=== PATIENT | male | born 1970 | race Caucasian/White ===

== ENCOUNTER 2023-07-14 15:41 | Outpatient (AMB) | payer OTHER, SELFPAY ==
--- NOTE | 2023-07-14 15:48 | A.OFFPC_ITS ---
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 Intake Note: pt is here for est care, has concerns of tinnitus, left thumb sore and cramps up and left arm goes numb ongoing, and left knees achy,pt states on on giong 1 yr Conflict Resolution Professional Required: No Accompanied by: Self / Same As Patient Allergies No Known Allergies Allergy (Verified 07/14/23 16:25) Medication List - Last Reconciled 07/14/23 by KEREN Givens No Known Home Meds Tobacco use date assessed: 07/14/23 Dental Screening Dental Screen Date: 07/14/23 Did you have a dental visit in the last 12 months?: Yes Did you have a dental problem in the last 6 months where you did not have access to dental care?: No Was dental information given to patient?: Patient has dentist 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 Will have pt monitor his blood pressure at home and drop off readings. Denies chest pain, shortness of breath, headache, dizziness, and blurred vision. Pt reports numbness of his LUE. He reports that the numbness starts in his forearm and hand and moves to his bicep and tricep. He does report some cervical neck pain. Pt reports that with certain motions he has radicular symptoms to his LUE. Recommended wrist brace at night and wrapping a towel around his elbow to keep arm straight. Will order XR of cervical spine and EMG testing. Pt has been a PPD smoker since age 20. Will refer for low-dose CT. [facility] Surgical History Hx of tonsillectomy Family History Mother No problems noted. Father Pancreatic cancer Social History Housing: House Alcohol intake: current Alcohol intake frequency: a few times a month Alcohol type: beer Patient Tobacco Use Status: Current everyday Tobacco user Cigarettes Per Day: 20 e-Cigarette/Vaping Use: Never Used service: Yes Current occupational status: employed and retired ([employer] ) Current occupation: [employer] Current occupational exposures/hazards: No Cognitive needs: No Hearing needs: No Vision needs: Yes Questionnaire PHQ-9 Over the last 2 weeks, how often have you been bothered by any of the following problems? 1. Little interest or pleasure in doing things: not at all 2. Feeling down, depressed, or hopeless: not at all 3. Trouble falling or staying asleep, or sleeping too much: not at all 4. Feeling tired or having little energy: not at all 5. Poor appetite or overeating: not at all 6. Feeling bad about yourself - or that you are a failure or have let yourself or your family down: not at all 7. Trouble concentrating on things, such as reading the newspaper or watching television: not at all 8. Moving or speaking so slowly that other people could have noticed. Or the opposite - being so fidgety or restless that you have been moving around a lot more than usual: not at all 9. Thoughts that you would be better off or of hurting yourself in some way: not at all Total score: 0 Depression Screening Interpretation: Negative Depression Screening Done: Yes 10468 - PHQ-9 Billing: Yes Source: Developed by Drs. Patrice Baires, Suzy Calderón, Elio Garcia and colleagues, with an educational lit from [employer]. Thrive Questionnaire Date Thrive assessed: 07/14/23 I am a: Patient What is your living situation today?: I have a steady place to live Within the past 12 months, did the food you bought not last and you didn't have the money to get more?: Never true Within the past 12 months, did you worry whether your food would run out before you got money to buy more?: Never true Do you have trouble paying for medicines?: No Do you have trouble getting transportation to medical appointments?: No Do you have trouble paying your heating and electricity bill?: No Do you have trouble taking care of your child, family member or friend?: No Do you have trouble with day-to-day activities such as bathing, preparing meals, shopping, managing finances, etc.?: No Are you currently unemployed and looking for a job?: No Are you interested in more education?: No Please select the resources that you would like help with: None Currently or been in a relationship where the following occur: no concerns reported THRIVE Score: 0 AUDIT C Alcohol Use Questionnaire (AUDIT-C) 1. How often do you have a drink containing alcohol?: 2-4 times a month 2. How many drinks containing alcohol do you have on a typical day when you are drinking?: 1 or 2 3. How often do you have six or more drinks on one occasion?: Never Total Score: 2 Score Reviewed/Action Taken: Yes SUMAYA-7 AMB Questionnaire SUMAYA-7 Date SUMAYA - 7 assessed: 07/14/23 Feeling nervous, anxious, or on edge: 0 = Not at all Not being able to stop or control worryin = Not at all Worrying too much about different things: 0 = Not at all Trouble relaxin = Not at all Being so restless that it is hard to sit still: 0 = Not at all Becoming easily annoyed or irritable: 0 = Not at all Feeling afraid as if something awful might happen: 0 = Not at all Total SUMAYA-7 score (0-4 normal; 5-9 mild; 10-14 moderate; 15-21 severe): 0 Source: Developed by Drs. Patrice Baires, Suzy Calderón, Elio Garcia and colleagues, with an educational lit from [employer]. SUMAYA-7 Assessment Billing SUMAYA-7 Assessment Tool: SUMAYA-7 Assessment 08813 Review of Systems Const Denies chills and Denies fever(s) Eyes Denies blurry vision ENT Denies vertigo, Denies dizziness and Denies sore throat Card Denies chest pain at rest, Denies chest pain with activity, Denies diaphoresis, Denies dyspnea and Denies dyspnea on exertion Resp Denies cough, Denies dyspnea, Denies dyspnea on exertion and Denies wheezing GI Denies abdominal pain, Denies melena, Denies hematochezia, Denies constipation, Denies diarrhea and Denies loose stools Denies hematuria Musc Denies numbness and Denies tingling Skin/Breast Denies lesions Neuro Denies vertigo, Denies dizziness, Denies numbness and Denies tingling Psych Denies anxiety, Denies depression, Denies homicidal ideation, Denies suicidal ideation and Denies other (substance abuse) Aller/Immun Denies wheezing Physical exam (Primary Care) Vital Signs: Last Vital Signs Pulse 74 07/14/23 15:50 BP 132/80 07/14/23 15:50 Pulse Ox 98 07/14/23 15:50 Oxygen Delivery Method Room Air 07/14/23 15:50 BMI result Body Mass Index 22.2 Tobacco/Smoking Status: Tobacco use Status Tobacco use date assessed 07/14/23 07/14/23 15:58 Patient Tobacco Use Status Current everyday Tobacco 07/14/23 15:58 e-Cigarette/Vaping Use Never Used 07/14/23 15:58 PHQ-9: PHQ-9 Score PHQ-9: Total score 0 07/14/23 16:12 Depression Screening Interpretation: Negative Thrive Assessment: Date of Thrive Assessment Date Thrive assessed 07/14/23 07/14/23 15:58 Currently or been in a relationship where the following occur: no concerns reported Const General: cooperative Nutritional Appearance: well nourished Orientation/consciousness: patient oriented x3 Resp Effort & Inspection: normal respiratory effort Auscultation: clear to auscultation bilaterally Cardio Rate: regular rate Rhythm: regular rhythm Heart sounds: S1 normal heart sound present, S2 normal heart sound present and no murmurs Back/Spine/Pelvis Other: - spurlings, no pain with turning head side to side, neck flexion, and extension Neuro General: patient oriented x3 Extrem Other: - tinels, + phalens Psych Appearance: grossly normal Mental Status: mental status grossly normal Speech and movement: Normal speech and movement present Affect: normal affect Attitude: cooperative Thought process: Normal thought process present Thought content: Normal thought content present Insight: Good insight present (Psych) Judgement: Good judgement present (Psych) Assessment and Plan Assessment & Plan (1) Smoker: Code(s): F17.200 - Nicotine dependence, unspecified, uncomplicated Plan: referring to thoracics for LDCT (2) HTN (hypertension): Code(s): I10 - Essential (primary) hypertension Plan: Pt will monitor BP at home and drop off readings, labs ordered (3) Cervical neck pain with evidence of disc disease: Code(s): M50.90 - Cervical disc disorder, unspecified, unspecified cervical region Plan: XR ordered (4) Left arm numbness: Code(s): R20.0 - Anesthesia of skin Plan: mostly forearm/hand numbness. EMG ordered, instructed to use a wrist splint at night and wrap a towel around his elbow to keep his arm straight at night Plan The patient agreed to the use of a medical records supervisor for this encounter. Scribed for MIGEL Rueda-BC by Kayleigh Naylor medical records supervisor, on 07/14/2023 at 16:15 EST. Orders: Orders Lipid Panel Today I10 - Essential (primary) hypertension NE electromyogram (EMG) Today R20.0 - Anesthesia of skin Complete Blood Count Auto Diff Today I10 - Essential (primary) hypertension Comprehensive Proctor. Panel Fast Today I10 - Essential (primary) hypertension TSH reflex Free T4 Today I10 - Essential (primary) hypertension UA CC w/rflx Micro + Cult Today I10 - Essential (primary) hypertension XR cervical spine 2V Today M50.90 - Cervical disc disorder, unspecified, unspecified cervical region NE nerve conduction velocity Today R20.0 - Anesthesia of skin Referrals Thoracic Surgery Referral F17.200 - Nicotine dependence, unspecified, uncomplicated Coding Level of Care Code New Pt Level 3 (73878) Diagnoses Smoker F17.200 HTN (hypertension) I10 Cervical neck pain with evidence of disc disease M50.90 Left arm numbness R20.0 Additional Codes SUMAYA-7 Assessment Billing - SUMAYA-7 Assessment Tool: SUMAYA-7 Assessment 82580 ([id number])
[2023-07-14 15:50] VITALS: BP 132/80; PULSE 74; O2SAT 98; BMI 22.2
== END 2023-07-14 16:39 | disposition home or self-care (01) ==
PROVIDERS: PCP Nurse Practitioner Family; Visit Provider Nurse Practitioner Family
DX: I10 Essential (primary) hypertension (principal); F17.210 Nicotine dependence, cigarettes, uncomplicated; M50.90 Cervical disc disorder, unspecified, unspecified cervical region; R20.0 Anesthesia of skin
CPT/HCPCS: 99203

== ENCOUNTER 2023-07-23 07:47 | Outpatient (REF) | payer OTHER, SELFPAY ==
--- NOTE | 2023-07-23 08:08 | EMG_ITS ---
Left median and ulnar motor and sensory studies were performed. Left antecubital brachial, median, and lateral radial sensory studies were performed. Needle examination was performed. IMPRESSION: Mild to moderate left ulnar neuropathy across cubital tunnel. MD TEJINDER Garcia/DA / [id number]
== END 2023-07-23 07:48 | disposition home or self-care (01) ==
LOC: HO.NEURO 07:47
PROVIDERS: PCP Nurse Practitioner Family; Visit Provider Nurse Practitioner Family
DX: R20.0 Anesthesia of skin (principal)
CPT/HCPCS: 95886; 95910

== ENCOUNTER 2023-07-23 09:11 | Outpatient (REF) | payer OTHER, SELFPAY ==
--- NOTE | ~2023-07-23 | XR_ITS ---
EXAMINATION: XR CERVICAL SPINE CLINICAL INFORMATION: Cervical disc disorder, unspecified, unspecified cervical region COMPARISON: None available. TECHNIQUE: AP and lateral views of the cervical spine were obtained. FINDINGS: The bones are diffusely osteopenic. There is no fracture. Prevertebral soft tissues are within normal limits. There is moderate to marked disc space narrowing at C5-C6 and C6-C7 with marginal osteophyte formation. There is no subluxation. There is preservation of the normal cervical lordosis. XR/XR cervical spine 2V IMPRESSION: Moderate to marked degenerative disc disease at C5-C6 and C6-C7.
[2023-07-23 10:12] LABS: MANUAL DIFF FLAG NO
[2023-07-23 10:30] LABS: Basophils Absolute Auto 0.1 X10*3/uL (0.0-0.2); Basophils Percent Auto 0.7 % (0-2); Eosinophils Absolute Auto 0.1 X10*3/uL (0.0-0.4); Hematocrit 45.4 % (42.0-52.0); Hemoglobin 15.5 g/dl (14.0-18.0); Imm Gran Abs Auto 0.03 X10*3/uL (0.00-0.03); Imm Gran Pct Auto 0.4 % (0.0-0.4); Lymphocytes Absolute Auto 1.8 X10*3/uL (1.2-4.9); Lymphocytes Percent Auto 25.7 % (20-40); Mean Corpuscular HGB Conc 34.1 g/dl (31.0-36.0); Mean Corpuscular Hemoglobin 32.6 pg (27.0-33.0); Mean Corpuscular Volume 95.4 fL (80.0-98.0); Mean Platelet Volume 9.6 fL (9.4-12.4); Monocytes Absolute Auto 0.5 X10*3/uL (0.1-1.2); Monocytes Percent Auto 7.1 % (2-11); Neutrophils Absolute Auto 4.6 x10*3/uL (2.0-8.3); Neutrophils Percent Auto 65.1 % (45-73); Platelet Count 345 X10*3/uL (160-400); Red Blood Count 4.76 X10*6/uL (4.60-5.80); Red Cell Distribution Width 13.1 % (11.0-16.0); White Blood Count 7.1 X10*3/uL (4.8-10.8)
[2023-07-23 11:43] LABS: Alanine Aminotransferase 18 U/L (0-40); Albumin Level 4.3 g/dL (3.5-5.0); Alkaline Phosphatase 65 U/L (39-117); Anion Gap 11 (12-20); Aspartate Amino Transferase 17 U/L (5-37); Bilirubin Total 0.7 mg/dL (0.0-1.0); Blood Urea Nitrogen 12 mg/dL (9-16); Calcium 9.4 mg/dL (8.4-10.2); Carbon Dioxide 28 mmol/L (22-29); Chloride 106 mmol/L (96-108); Cholesterol 163 mg/dL (<200); Estimated Glomerular Filt Rate > 60; Glucose Fasting 81 mg/dL (60-99); HDL Cholesterol 58 mg/dL (>40); LDL Cholesterol Calculated 96 mg/dL (<100); Potassium 4.3 mmol/L (3.3-5.1); Sodium 141 mmol/L (135-145); Triglycerides 47 mg/dL (<150)
== END 2023-07-23 09:12 | disposition home or self-care (01) ==
LOC: HO.HMGCX 09:11
PROVIDERS: PCP Nurse Practitioner Family; Visit Provider Nurse Practitioner Family
DX: M50.90 Cervical disc disorder, unspecified, unspecified cervical region (principal); I10 Essential (primary) hypertension; R20.0 Anesthesia of skin
CPT/HCPCS: 36415; 72040; 80053; 80061; 84443; 85025

== ENCOUNTER 2023-07-24 05:51 | Outpatient (REF) | payer OTHER, SELFPAY ==
[2023-07-24 11:08] LABS: Appearance Urine Clear; Color Urine Yellow; Glucose Urine UA Negative (Negative); Leukocyte Esterase Urine Negative (Negative); Nitrite Urine Negative (Negative); PH 5.5 (5.0-9.0); Specific Gravity - Urine 1.025 (1.005-1.025); UMIC TRIGGER UACC YES; Urine Blood Trace (Negative); Urine Ketones Negative (Negative); Urine Protein Negative (Neg-Trace)
[2023-07-24 11:16] LABS: Bacteria Urine None Seen (None Seen); Hyaline Casts Urine 0-2 /LPF (0-2); RBC Urine 0-2 /HPF (0-2); Squamous Epithelial Cell Urine 0-2 /HPF (0-2); WBC Urine 0-5 /HPF (0-5)
== END 2023-07-24 05:52 | disposition home or self-care (01) ==
LOC: HO.HMGCLNP 05:51
PROVIDERS: PCP Nurse Practitioner Family; Visit Provider Nurse Practitioner Family
DX: I10 Essential (primary) hypertension (principal)
CPT/HCPCS: 81001; 81003

== ENCOUNTER 2023-08-04 06:19 | Outpatient (REF) | payer OTHER, SELFPAY ==
[2023-08-04 11:29] LABS: Prostate Specific Antigen Scr 0.24 ng/mL (<0.05-4.0)
== END 2023-08-04 06:20 | disposition home or self-care (01) ==
LOC: HO.HMGCLDS 06:19
PROVIDERS: PCP Nurse Practitioner Family; Visit Provider Nurse Practitioner Family
DX: Z12.5 Encounter for screening for malignant neoplasm of prostate (principal)
CPT/HCPCS: 36415; 84153

== ENCOUNTER 2023-09-10 06:49 | Outpatient (REF) | payer OTHER, SELFPAY ==
[2023-09-10 10:15] LABS: Urine Cytology See Pathology rpt
[2023-09-10 10:21] LABS: Appearance Urine Clear; Color Urine Yellow; Glucose Urine UA Negative (Negative); Leukocyte Esterase Urine Negative (Negative); Nitrite Urine Negative (Negative); Urine Blood Negative (Negative); Urine Ketones Negative (Negative); Urine Protein Negative (Neg-Trace)
== END 2023-09-10 06:50 | disposition home or self-care (01) ==
LOC: HO.HMGCLDS 06:49
PROVIDERS: PCP Nurse Practitioner Family; Visit Provider Nurse Practitioner Family
DX: I10 Essential (primary) hypertension (principal); R31.29 Other microscopic hematuria
CPT/HCPCS: 81003; 87086; 88112

== ENCOUNTER 2023-09-17 07:33 | Outpatient (REF) | payer OTHER, SELFPAY ==
--- NOTE | ~2023-09-17 | CT_ITS ---
EXAMINATION: CT ABDOMEN AND PELVIS WITHOUT AND WITH CONTRAST CLINICAL INFORMATION: Other microscopic hematuria. COMPARISON: None available. TECHNIQUE: Noncontrast CT of the abdomen and pelvis is performed followed by split bolus contrast-enhanced images using 85 mL Omnipaque 350 contrast.? Postcontrast imaging is performed during the combined nephrogram and excretion phase. Sagittal and coronal reformatted images were obtained on the technologist's workstation for both the precontrast and postcontrast phases. This CT examination was performed using dose optimization techniques as appropriate, variously including the following: *Automated exposure control *Adjustment of mA and/or kV according to patient size (this includes techniques or standardized protocols for targeted exams where dose is matched to indication/reason for exam; i.e. extremities or head) *Use of iterative reconstruction technique DLP: 585.0 mGy-cm FINDINGS: LUNG BASES: The visualized lung bases are unremarkable. LIVER, GALLBLADDER, AND BILIARY TREE: The liver is enlarged at 17.9 cm in cephalocaudad dimension but demonstrates normal attenuation and shape. No focal hepatic lesion or biliary ductal dilatation is present. The gallbladder is contracted and small but otherwise unremarkable with no evidence of radiopaque gallstones, gallbladder wall thickening, or obvious pericholecystic inflammatory changes. PANCREAS: Unremarkable. SPLEEN: Unremarkable. ADRENAL GLANDS: Unremarkable. KIDNEYS AND URETERS: The kidneys are normal in size, shape, and attenuation. Multiple left-sided benign parapelvic and cortical Bosniak class I renal cysts are noted, which require no additional imaging or followup. No solid renal masses are seen. No hydronephrosis, hydroureter, or calculi seen. No perinephric stranding. No filling defects or masses are seen within the urinary collecting system. BLADDER: The anterior lateral portions of the bladder extend mildly into small direct inguinal hernias bilaterally, right greater than left. GASTROINTESTINAL TRACT: The small and large bowel are unremarkable. The appendix is unremarkable. ABDOMINAL WALL: No significant hernia is appreciated. LYMPH NODES: Normal. VASCULAR: Unremarkable. PELVIC VISCERA: There is mild prostatic enlargement. Seminal vesicles appear symmetrically slightly enlarged. OSSEUS STRUCTURES: Mild scoliosis convex to the left. Mild degenerative changes are present throughout the spine. There is marked grade 1 anterolisthesis of L5 upon S1. CT/CT urogram IMPRESSION: 1. A cause for the patient's hematuria has not been found. 2. Incidental note made of mild hepatomegaly, benign Bosniak class I left renal cysts which need no additional imaging or followup, small bilateral direct inguinal hernias containing a small amount of the bladder, mild BPH and degenerative changes in the spine with grade 1 anterolisthesis of L5 upon S1.
[2023-09-17] MEDS: iohexoL 350 MG/ML 100 ML INFUS..BTL IV (08:33)
[2023-09-18 14:24] LABS: GFR POC > 60
== END 2023-09-17 07:34 | disposition home or self-care (01) ==
LOC: HO.CT 07:33
PROVIDERS: PCP Nurse Practitioner Family; Visit Provider Nurse Practitioner Family
DX: R31.29 Other microscopic hematuria (principal)
CPT/HCPCS: 74178; 82565; Q9967

== ENCOUNTER 2023-10-13 08:38 | Outpatient (REF) | payer OTHER, SELFPAY ==
[2023-10-14 07:59] LABS: Urine Cytology See Pathology rpt
== END 2023-10-13 08:39 | disposition home or self-care (01) ==
LOC: HO.LNP 08:38
PROVIDERS: PCP Nurse Practitioner Family; Visit Provider Nurse Practitioner Family
DX: R31.29 Other microscopic hematuria (principal); F17.210 Nicotine dependence, cigarettes, uncomplicated
CPT/HCPCS: 81003; 88112; 99202

== ENCOUNTER 2023-10-13 08:38 | Outpatient (AMB) | payer OTHER, SELFPAY ==
--- NOTE | 2023-10-13 08:50 | A.OFFVIS_ITS ---
Intake Visit Reasons: microscopic hematuria Intake Note: New Patient presents today for initial visit to establish treatment for : Microscopic Hematuria Urology Medications: none Allergies to Antibiotic: none Blood Thinner: none Smoker: yes, 20-30yrs Yarn Dyer Required: No Accompanied by: Self / Same As Patient Allergies No Known Allergies Allergy (Verified 10/13/23 09:20) Medication List - Last Reconciled 10/13/23 by KEREN Faith No Known Home Meds HPI Comments Details: Miko Weeks is a very pleasant 52-year-old male patient of Dr. Meraz. Presents to the office today as a new patient for microscopic hematuria in the setting of nicotine dependence. In discussion with the patient today he reports having followed up with his PCP for back pain and arm pain he has been experiencing at which time a urine was obtained and the patient was noted to have microscopic hematuria and recommendations were made for urology referral for further assessment evaluation. Patient reports over 20 year history of nicotine dependence. He reports smoking approximately 1 pack of cigarettes per day. In review of patient's chart it appears a CT urogram was ordered and performed however reading remains unread. Images reviewed with Dr. Pinto no abnormalities noted within the kidneys, ureters, and or bladder. The prostate does appear enlarged. When asked he otherwise denies any bothersome urinary issues. He denies urinary urgency, urinary frequency, incontinence, noc turia, hematuria, dysuria, foul smelling urine, changes to urinary stream, flank pain, fever, and or chills. He is happy with his current voiding parameters. Discussed at length potential causes for microscopic hematuria may include but are not limited to kidney stones, cancer in the urinary tract, BPH, kidney stone disease or inflammatory conditions of the urinary tract. I have discussed workup to include cystoscopy evaluation. In review of patient's chart it appears urine cytology 09/17 Negative for high-grade urothelial carcinoma. He otherwise offers no other issues or concerns at this time. [facility] Surgical History Hx of tonsillectomy Family History Mother No problems noted. Father Pancreatic cancer Social History Housing: House Alcohol intake: current Alcohol intake frequency: a few times a month Alcohol type: beer Patient Tobacco Use Status: Current everyday Tobacco user Cigarettes Per Day: 20 e-Cigarette/Vaping Use: Never Used service: Yes Current occupational status: employed and retired ([employer] ) Current occupation: [employer] Current occupational exposures/hazards: No Cognitive needs: No Hearing needs: No Vision needs: Yes Review of Systems Const All systems reviewed & are unremarkable except as noted in HPI and below Physical Exam Const General: cooperative, healthy appearing, comfortable, no acute distress, well developed, alert and awake Orientation/consciousness: patient oriented x3 Limitations: no limitations HEENT Head: Yes normal to inspection, Yes normocephalic and Yes atraumatic Ears: hearing grossly normal bilaterally Eyes General: appearance normal, both eyes and all related structures Neck Neck: Yes normal visual inspection and Yes trachea midline Chest Chest palpation & inspection: normal inspection of the chest Resp Effort & Inspection: normal respiratory effort and able to speak in complete sentences Cardio Rate: regular rate GI Inspection: Yes normal to inspection General: Yes no CVA tenderness Back/Spine/Pelvis Back: no CVA tenderness Skin General skin exam: no rashes or lesions noted Neuro General: patient oriented x3 Extrem General: Yes normal to inspection Psych Appearance: grossly normal and well kempt Mental Status: mental status grossly normal Speech and movement: Normal speech and movement present and Clear speech present Affect: normal affect Attitude: cooperative Thought process: Normal thought process present Thought content: Normal thought content present Insight: Fair insight present (Psych) Judgement: Fair judgement present (Psych) Results AMB Urinalysis, Automated UA Leukoctes 0 Bettie/uL Last Edit by [employer] on 10/13/23 09:11 UA Nitrite Negative Last Edit by [employer] on 10/13/23 09:11 UA Urobilinogen 0.2 mg/dL Last Edit by [employer] on 10/13/23 09:11 UA Protein 0 mg/dL Last Edit by [employer] on 10/13/23 09:11 UA pH 6.0 Last Edit by [employer] on 10/13/23 09:11 UA Blood 10 Porfirio/uL Last Edit by [employer] on 10/13/23 09:11 UA Specific [place] 1.005 Last Edit by [employer] on 10/13/23 09:11 UA Ketone Negative Last Edit by Hortensia Garcia on 10/13/23 09:11 UA Bilirubin 0 mg/dL Last Edit by Hortensia Garcia on 10/13/23 09:11 UA Glucose 0 mg/dL Last Edit by Hortensia Garcia on 10/13/23 09:11 Results Reviewed Results Reviewed: Laboratory Last Values Urine pH (Auto) 6.0 10/13/23 08:54 Specific [place] (Auto) 1.005 10/13/23 08:54 Urine Protein (Auto) 0 mg/dL 10/13/23 08:54 Glucose (UA)(Auto) 0 mg/dL 10/13/23 08:54 Urine Ketones (Auto) Negative 10/13/23 08:54 Urine Blood (Auto) 10 Porfirio/uL 10/13/23 08:54 Urine Nitrite (Auto) Negative 10/13/23 08:54 Urine Bilirubin (Auto) 0 mg/dL 10/13/23 08:54 Urine Urobilinogen (Auto) 0.2 mg/dL 10/13/23 08:54 Leukocyte Esterase (Auto) 0 Bettie/uL 10/13/23 08:54 Date of Service: 09/17/23 EXAMINATION: CT ABDOMEN AND PELVIS WITHOUT AND WITH CONTRAST FINDINGS: LUNG BASES: The visualized lung bases are unremarkable. LIVER, GALLBLADDER, AND BILIARY TREE: The liver is enlarged at 17.9 cm in cephalocaudad dimension but demonstrates normal attenuation and shape. No focal hepatic lesion or biliary ductal dilatation is present. The gallbladder is contracted and small but otherwise unremarkable with no evidence of radiopaque gallstones, gallbladder wall thickening, or obvious pericholecystic inflammatory changes. PANCREAS: Unremarkable. SPLEEN: Unremarkable. ADRENAL GLANDS: Unremarkable. KIDNEYS AND URETERS: The kidneys are normal in size, shape, and attenuation. Multiple left-sided benign parapelvic and cortical Bosniak class I renal cysts are noted, which require no additional imaging or followup. No solid renal masses are seen. No hydronephrosis, hydroureter, or calculi seen. No perinephric stranding. No filling defects or masses are seen within the urinary collecting system. BLADDER: The anterior lateral portions of the bladder extend mildly into small direct inguinal hernias bilaterally, right greater than left. GASTROINTESTINAL TRACT: The small and large bowel are unremarkable. The appendix is unremarkable. ABDOMINAL WALL: No significant hernia is appreciated. LYMPH NODES: Normal. VASCULAR: Unremarkable. PELVIC VISCERA: There is mild prostatic enlargement. Seminal vesicles appear symmetrically slightly enlarged. OSSEUS STRUCTURES: Mild scoliosis convex to the left. Mild degenerative changes are present throughout the spine. There is marked grade 1 anterolisthesis of L5 upon S1. IMPRESSION: 1. A cause for the patient's hematuria has not been found. 2. Incidental note made of mild hepatomegaly, benign Bosniak class I left renal cysts which need no additional imaging or followup, small bilateral direct inguinal hernias containing a small amount of the bladder, mild BPH and degenerative changes in the spine with grade 1 anterolisthesis of L5 upon S1. Assessment & Plan Assessment & Plan (1) Microhematuria: Code(s): R31.29 - Other microscopic hematuria Category: Medical (2) Nicotine dependence: Code(s): F17.200 - Nicotine dependence, unspecified, uncomplicated Category: Medical Plan In office urinalysis results reviewed with the patient today; as noted above; will send for urine cytology. Recent CT results reviewed; as noted above. Discussed at length potential causes for microscopic hematuria in the setting of nicotine dependence. Discussed further workup to include in office cystoscopy; risks and benefits of these interventions were discussed. All questions were answered. Patient currently denies any bothersome urinary issues. He reports be happy with current voiding parameters. He does not wish to undergo an office cystoscopy; discussed possible delay in treatment. He is aware. Follow-up in 6 months; or sooner with any issues, concerns, and or questions. Orders: Orders AMB Urinalysis Automated 10/13/23 Z13.9 - Encounter for screening, unspecified Urine Cytology 10/13/23 R31.29 - Other microscopic hematuria Patient Instructions: The patient had an opportunity to ask questions regarding the treatment plan. All questions were answered. Physical exam, labs, and imaging were discussed and reviewed in detail. As well as risks, benefits, and discussion of treatment choices. No major barriers to understanding were identified. The patient expressed understanding and agreement with the above treatment plan. The patient was made aware they should contact our office by phone for worsening of their current condition, the appearance of new symptoms, or with any questions or concerns. Compliance is encouraged with any medications and follow up testing that is ordered. It is a privilege to be allowed the opportunity to participate in? your urological care.? Again, if you have any questions or concerns If you have any questions or concerns please do not hesitate to contact me. The office is [phone]. This note is constructed using voice recognition software. While every effort has been made to ensure accuracy associate research scientist errors may have been included. Yours sincerely, KEREN Faith Coding Level of Care Code New Pt Level 3 (32377) Diagnoses Microhematuria R31.29 Nicotine dependence F17.200
== END 2023-10-13 09:21 | disposition home or self-care (01) ==
PROVIDERS: PCP Nurse Practitioner Family; Visit Provider Nurse Practitioner Family
DX: R31.29 Other microscopic hematuria (principal); F17.200 Nicotine dependence, unspecified, uncomplicated
CPT/HCPCS: 99203

== ENCOUNTER 2023-11-19 13:40 | Outpatient (AMB) | payer OTHER, SELFPAY ==
--- NOTE | 2023-11-19 13:56 | A.OFFPC_ITS ---
Vital Signs 11/19/23 13:59 11/19/23 14:32 Height 5 ft 11 in Weight 160 lb BMI 22.3 BP 120/94 H 120/82 Blood Pressure Location Lt brachial Rt brachial Position Sitting Sitting Pulse 63 Pulse Source Pulse Oximeter Pulse Oximetry (%) 98 Oxygen Delivery Method Room Air Intake Visit Reasons: 3M F/U labs HTN Intake Note: Patient here for HTN f/u. Allergies No Known Allergies Allergy (Verified 11/19/23 14:00) Tobacco use date assessed: 07/14/23 Dental Screening Dental Screen Date: 07/14/23 HPI 3M F/U labs HTN HPI Details HTN: Pt's blood pressure is elevated today. Will start lisinopril 2.5mg. Will have pt continue to monitor his blood pressure at home and record readings. Denies chest pain, shortness of breath, headache, dizziness, and blurred vision. Pt is following up with urology for micro hem. Pt has a family hx of pancreatic cancer. Will order labs and MRI of abdomen. Denies any ABD pains, change in bowel habits, N/V/D. [facility] Medical History HTN (hypertension) Nicotine dependence, cigarettes, uncomplicated Surgical History History of tonsillectomy Family History Mother No problems noted. Father Pancreatic cancer Social History Housing: House Alcohol intake: current Alcohol intake frequency: a few times a month Alcohol type: beer Patient Tobacco Use Status: Current everyday Tobacco user Cigarettes Per Day: 20 e-Cigarette/Vaping Use: Never Used service: Yes Current occupational status: employed and retired ([employer] ) Current occupation: [employer] Current occupational exposures/hazards: No Cognitive needs: No Hearing needs: No Vision needs: Yes Questionnaire PHQ-9 Over the last 2 weeks, how often have you been bothered by any of the following problems? 1. Little interest or pleasure in doing things: not at all 2. Feeling down, depressed, or hopeless: not at all 3. Trouble falling or staying asleep, or sleeping too much: several days 4. Feeling tired or having little energy: several days 5. Poor appetite or overeating: not at all 6. Feeling bad about yourself - or that you are a failure or have let yourself or your family down: not at all 7. Trouble concentrating on things, such as reading the newspaper or watching television: not at all 8. Moving or speaking so slowly that other people could have noticed. Or the opposite - being so fidgety or restless that you have been moving around a lot more than usual: not at all 9. Thoughts that you would be better off or of hurting yourself in some way: not at all Total score: 2 Depression Screening Interpretation: Negative Depression Screening Done: Yes 07460 - PHQ-9 Billing: Yes Source: Developed by Drs. Patrice Baires, Suzy Calderón, Elio Garcia and colleagues, with an educational lit from [employer]. Thrive Questionnaire Date Thrive assessed: 11/14/23 I am a: Patient What is your living situation today?: I have a steady place to live Within the past 12 months, did the food you bought not last and you didn't have the money to get more?: Never true Within the past 12 months, did you worry whether your food would run out before you got money to buy more?: Never true Do you have trouble paying for medicines?: No Do you have trouble getting transportation to medical appointments?: No Do you have trouble paying your heating and electricity bill?: No Do you have trouble taking care of your child, family member or friend?: No Do you have trouble with day-to-day activities such as bathing, preparing meals, shopping, managing finances, etc.?: No Are you currently unemployed and looking for a job?: No Are you interested in more education?: No Please select the resources that you would like help with: Housing/Intermediate Currently or been in a relationship where the following occur: No concerns reported THRIVE Score: 0 AUDIT C Alcohol Use Questionnaire (AUDIT-C) 1. How often do you have a drink containing alcohol?: 2-3 times a week 2. How many drinks containing alcohol do you have on a typical day when you are drinking?: 1 or 2 3. How often do you have six or more drinks on one occasion?: Never Total Score: 3 SUMAYA-7 AMB Questionnaire SUMAYA-7 Date SUMAYA - 7 assessed: 07/14/23 Feeling nervous, anxious, or on edge: 0 = Not at all Not being able to stop or control worryin = Not at all Worrying too much about different things: 0 = Not at all Trouble relaxin = Not at all Being so restless that it is hard to sit still: 0 = Not at all Becoming easily annoyed or irritable: 0 = Not at all Feeling afraid as if something awful might happen: 0 = Not at all Total SUMAYA-7 score (0-4 normal; 5-9 mild; 10-14 moderate; 15-21 severe): 0 Source: Developed by Drs. Patrice Baires, Suzy Calderón, Elio Garcia and colleagues, with an educational lit from [employer]. SUMAYA-7 Assessment Billing SUMAYA-7 Assessment Tool: SUMAYA-7 Assessment 88320 Review of Systems Const Reports as per HPI Physical exam (Primary Care) Vital Signs: Last Vital Signs Pulse 63 11/19/23 13:59 BP 120/94 H 11/19/23 13:59 Pulse Ox 98 11/19/23 13:59 Oxygen Delivery Method Room Air 11/19/23 13:59 BMI result Body Mass Index 22.3 Tobacco/Smoking Status: Tobacco use Status Tobacco use date assessed 07/14/23 11/19/23 13:59 Patient Tobacco Use Status Current everyday Tobacco 11/19/23 13:59 e-Cigarette/Vaping Use Never Used 11/19/23 13:59 PHQ-9: PHQ-9 Score PHQ-9: Total score 2 11/19/23 14:10 Depression Screening Interpretation: Negative Thrive Assessment: Date of Thrive Assessment Date Thrive assessed 11/14/23 11/19/23 13:59 Currently or been in a relationship where the following occur: No concerns reported Const General: cooperative Orientation/consciousness: patient oriented x3 Resp Effort & Inspection: normal respiratory effort Auscultation: clear to auscultation bilaterally and diminished lung sounds Cardio Rate: regular rate Rhythm: regular rhythm Heart sounds: S1 normal heart sound present and S2 normal heart sound present GI Palpation (GI): nontender Neuro General: patient oriented x3 Psych Appearance: grossly normal Mental Status: mental status grossly normal Speech and movement: Normal speech and movement present Affect: normal affect Attitude: cooperative Thought process: Normal thought process present Thought content: Normal thought content present Insight: Good insight present (Psych) Judgement: Good judgement present (Psych) Assessment and Plan Assessment & Plan (1) HTN (hypertension): Code(s): I10 - Essential (primary) hypertension Plan: starting lisinopril (2) Family history of pancreatic cancer: Code(s): Z80.0 - Family history of malignant neoplasm of digestive organs Plan: MRI ordered and Ca 19-9 Plan The patient agreed to the use of a medical services coordinator for this encounter. Scribed for MIGEL Rueda-ROWAN by Kayleigh Naylor medical services coordinator, on 11/19/2023 at 14:10 EST. Orders: Orders Comprehensive Met. Panel Today I10 - Essential (primary) hypertension Carbohydrate Antigen 19-9 Today Z80.0 - Family history of malignant neoplasm of digestive organs MR abdomen wo/w con Today Z80.0 - Family history of malignant neoplasm of digestive organs Medications: New lisinopril 2.5 mg PO DAILY 90 tabs 0RF Coding Level of Care Code Est Pt Level 3 (45753) Diagnoses HTN (hypertension) I10 Family history of pancreatic cancer Z80.0 Additional Codes SUMAYA-7 Assessment Billing - SUMAYA-7 Assessment Tool: SUMAYA-7 Assessment 64569 ([id number])
[2023-11-19 13:59] VITALS: BP 120/94; PULSE 63; O2SAT 98; BMI 22.3
[2023-11-19 14:32] VITALS: BP 120/82
== END 2023-11-19 14:35 | disposition home or self-care (01) ==
PROVIDERS: PCP Nurse Practitioner Family; Visit Provider Nurse Practitioner Family
DX: I10 Essential (primary) hypertension (principal); Z80.0 Family history of malignant neoplasm of digestive organs
CPT/HCPCS: 99213

== ENCOUNTER 2023-12-11 10:34 | Outpatient (AMB) | payer OTHER, SELFPAY ==
--- NOTE | 2023-12-11 07:51 | MHC.OFFVIS ---
Intake Visit Reasons: Current Smoker Allergies No Known Allergies Allergy (Verified 11/19/23 14:00) HPI HPI Current Smoker: Details: Initial visit for this 53yo smoker with a 30+PYH. Patient has been smoking since age 20 for 33 years at 1ppd. . Denies marijuana use. Reports social second hand smoke exposure. 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 . Denies known family history of lung cancer. Denies personal history of cancers. Denies chest CT in last year. . Denies recent travel outside the [place]. Denies recent respiratory illness or recent hospitalization for respiratory issues. Denies testing positive for COVID. Denies receiving COVID Vaccine. . Denies fever, chills, new/worsening cough, hemoptysis, hoarseness or dysphagia. Denies significant chest pain, significant dyspnea or unintentional weight loss. Patient Lung Cancer Screening Questionnaire reviewed with patient by provider. . Shared Decision Making Completed. Patient meets criteria. Discussed in detail with patient, the risk vs benefit of LDCT screening. Patient consents to proceed with scan. Discussed smoking cessation. [facility] Medical History (Updated 12/11/23 @ 10:40 by Paradise Maya PA-C) HTN (hypertension) Nicotine dependence, cigarettes, uncomplicated Surgical History History of tonsillectomy Family History Mother No problems noted. Father Pancreatic cancer Social History (Updated 12/11/23 @ 10:40 by Paradise Maya PA-C) Housing: House Alcohol intake: current Alcohol intake frequency: a few times a month Alcohol type: beer Patient Tobacco Use Status: Current everyday Tobacco user Cigarettes Per Day: 20 Years Smoked: (onset 20yo, 1ppd x 33yrs, 30+PYH) e-Cigarette/Vaping Use: Never Used service: Yes Current occupational status: employed and retired ([employer] ) Current occupation: [employer] Current occupational exposures/hazards: No Cognitive needs: No Hearing needs: No Vision needs: Yes Assessment & Plan Assessment & Plan (1) Nicotine dependence, cigarettes, uncomplicated: Comment: (current smoker, onset 20yo, 1ppd x 33yrs, 30+PYH) Code(s): F17.210 - Nicotine dependence, cigarettes, uncomplicated Category: Medical Plan: - SDM visit completed today in office. - Patient meets criteria for LDCT for lung cancer screening purposes and is asymptomatic. - Smoking cessation counseling offered. Patients can always call [phone]. - Will arrange for a LDCT scan of the chest for screening purposes at [facility]. - Risks, benefits, and alternatives were discussed in detail and the patient agrees to proceed. - Risks discussed include but are not limited to: radiation exposure, anxiety during testing and while awaiting results, false negatives, false positives and possibility of additional intervention such as further imaging or surgical procedures for benign disease. - Benefits are obviously detection of lung cancer at an early stage which can lead to improved outcomes. - Discussed the importance of screening program compliance with adherence to yearly LDCT scan as scheduled - or sooner interval scans for personalized screening regimen. - Discussed follow up plan. Our office will send a letter discussing results and if needed set up phone call and office visit based on CT findings. - Patient educated on results categorization and the management decisions for suspicious findings potentially found on the screening LDCT scan. Any patient with a Lung RADS score of 3 or 4 will be reviewed by a multidisciplinary team at [facility] to form a plan of action in regards to scan findings. - If further work up is warranted for a suspicious lung finding this will be followed by the Lung Cancer Screening program in conjunction with the Thoracic Surgery Department at [facility]. - A copy of the office note and LDCT will be sent to the patient's PCP - as well as documentation on any associated further plans of care. - Incidental findings on LDCT are the PCP's responsibility. These findings are indicated with an S finding on the LDCT Assessment. A note discussing the findings will be sent to the PCP who is then responsible for further management. - All questions answered.? Coding Level of Care Code Lung Cancer Screening G0296 Diagnoses Nicotine dependence, cigarettes, uncomplicated F17.210
== END 2023-12-11 10:50 | disposition home or self-care (01) ==
PROVIDERS: PCP Nurse Practitioner Family; Referring Provider Nurse Practitioner Family; Visit Provider Physician Assistant Medical
DX: F17.210 Nicotine dependence, cigarettes, uncomplicated (principal)
CPT/HCPCS: G0296

== ENCOUNTER 2023-12-11 10:47 | Outpatient (REF) | payer OTHER, SELFPAY ==
--- NOTE | ~2023-12-11 | CT_ITS ---
EXAMINATION: CT CHEST LOW-DOSE SCREENING WITHOUT CONTRAST CLINICAL INFORMATION: Asymptomatic patient meeting criteria for lung screening. Nicotine dependence, cigarettes, uncomplicated. The patient is a current smoker with a 30 pack-year history of smoking. COMPARISON: None available. TECHNIQUE: Multidetector volumetric non-contrast CT imaging of the chest was obtained on a Somatom Definition scanner using low-dose screening CT technique. Axial thin section 0.625 mm reformations in soft tissue and lung windows were obtained. Sagittal and coronal reformations were obtained. Axial MIP images were also created and reviewed. RECONSTRUCTED WIDTH: 1.25 mm x 1.[address] examination was performed using dose optimization techniques as appropriate, variously including the following: *Automated exposure control *Adjustment of mA and/or kV according to patient size (this includes techniques or standardized protocols for targeted exams where dose is matched to indication/reason for exam; i.e. extremities or head) *Use of iterative reconstruction technique TOTAL EXAM DLP: 47 mGy-cm CTDIvol: 1.31 mGy FINDINGS: PULMONARY NODULES: 2 tiny 3 mm nodular densities are present along the major fissure in the left lower lobe consistent with small perifissural lymph nodes (5:242 and 246). There is a single 3 mm right middle lobe nodule (5:269). LUNGS: Lungs bilaterally symmetrically expanded. There is mild emphysematous change along with bronchial thickening. No effusion or pneumothorax. Central airways patent. LYMPHATIC STRUCTURES: No mediastinal, hilar or axillary adenopathy or free fluid collection. THYROID GLAND: Unremarkable to the extent seen. CARDIOVASCULAR STRUCTURES: Aortic and heart size normal. No significant coronary artery calcifications. No pericardial effusion. UPPER ABDOMEN: Included portions of the solid organs in the upper abdomen unremarkable on noncontrast imaging. OSSEOUS STRUCTURES: No suspicious focal findings. Degenerative changes are present in the spine with mild kyphosis and some anterior wedging of midthoracic vertebral bodies. SPINAL COMPRESSION: Absent. CT/CT lung screening IMPRESSION: No findings suspicious for malignancy/pulmonary nodule(s)/other. LUNG-RADS CATEGORY ASSESSMENT: 2: Benign. INCIDENTAL FINDINGS (S CATEGORY): Finding: No incidental findings. Significance category: Normal or normal variant. RECOMMENDATION: Low dose lung CT. overall in 1 year. Electronically signed by: Dixon Urena MD 02/02/2024 10:12 AM EDT
== END 2023-12-11 10:48 | disposition home or self-care (01) ==
LOC: HO.CT 10:47
PROVIDERS: PCP Nurse Practitioner Family; Visit Provider Physician Assistant Medical
DX: Z12.2 Encounter for screening for malignant neoplasm of respiratory organs (principal); F17.210 Nicotine dependence, cigarettes, uncomplicated
CPT/HCPCS: 71271; G0296

== ENCOUNTER 2024-01-03 15:58 | Outpatient (REF) | payer OTHER, SELFPAY ==
--- NOTE | ~2024-01-03 | MR_ITS ---
EXAMINATION: MR ABDOMEN WITHOUT AND WITH CONTRAST CLINICAL INFORMATION: Family history of pancreatic cancer. COMPARISON: CT UROGRAM September 17, 2023 TECHNIQUE: MR abdomen was performed without and with use of 7 mL intravenous Gadavist gadolinium contrast. Postcontrast images are performed in multiphase dynamic sequences. Imaging was performed in 3 planes. FINDINGS: LUNG BASES: No pleural or pericardial effusion. LIVER, GALLBLADDER, AND BILIARY TREE: The liver is normal in size, smooth in contour, and normal in signal. No focal hepatic lesion or biliary ductal dilatation is present. The gallbladder is contracted. PANCREAS: Normal contour. Homogeneous signal. No ductal dilatation. No peripancreatic stranding. SPLEEN: Not enlarged. ADRENAL GLANDS: No adrenal mass. KIDNEYS AND URETERS: The kidneys are symmetric in size and enhancement. 1.1 x 1.7 x 1.3 cm upper to mid pole left renal cyst. No abnormal enhancement. No further imaging follow-up is needed. No hydronephrosis. No perinephric fluid collection. GASTROINTESTINAL TRACT: No bowel obstruction. No ascites or fluid collection. ABDOMINAL WALL: No significant hernia is appreciated. LYMPH NODES: No bulky lymphadenopathy. VASCULAR: Normal caliber abdominal aorta. MR/MR abdomen wo/w con IMPRESSION: No focal pancreatic mass. Electronically signed by: Sebastian Rao MD 01/27/2024 10:18 AM EDT
[2024-01-03] MEDS: gadobutroL 7.5 ML VIAL IVPUSH (16:53)
== END 2024-01-03 15:59 | disposition home or self-care (01) ==
LOC: HO.MRI 15:58
PROVIDERS: PCP Nurse Practitioner Family; Visit Provider Nurse Practitioner Family
DX: Z13.818 Encounter for screening for other digestive system disorders (principal); Z80.0 Family history of malignant neoplasm of digestive organs
CPT/HCPCS: 74183; A9585

== ENCOUNTER 2024-04-12 08:16 | Outpatient (AMB) | payer OTHER, SELFPAY ==
--- NOTE | 2024-04-12 08:18 | A.OFFVIS_ITS ---
Intake Visit Reasons: 6m follow up Intake Note: Patient presents today for follow up on : Microscopic Hematuria Urology Medications: none Allergies to Antibiotic: none Blood Thinner: none * Smoker: yes, 20-30yrs * Last cytology 10/13/23 [employer]cre[employer] Mechanical Required: No Accompanied by: Self / Same As Patient Allergies No Known Allergies Allergy (Verified 04/12/24 08:51) Medication List - Last Reconciled 04/12/24 by KEREN Faith lisinopril 2.5 mg PO DAILY HPI Comments Details: Miko Weeks is a very pleasant 53-year-old male patient of Dr. Meraz. He presents to the office today for follow-up of his microscopic hematuria in the setting of nicotine dependence. In discussion with the patient today he reports to be doing and feeling well. When asked he continues to smoke cigarettes. In office urinalysis results reviewed with the patient today microscopic hematuria noted. Patient with a previous CT urogram 09/17 noting the kidneys are normal in size, shape, and attenuation. Multiple left-sided benign peripelvic and cortical Bosniak class 1 renal cysts are noted which require no additional follow-up per radiology report. No solid renal masses are seen. No hydronephrosis, hydroureter, or calculi seen. The anterior lateral position of the bladder extended mildly into the small direct inguinal hernias bilaterally, right greater than left. We discussed at length potential causes of microscopic hematuria as well as further workup to include in office cystoscopy. Patient continues to decline cystoscopy. We discussed risks and delay in treatment. He otherwise denies any bothersome urinary issues or concerns. He denies urinary urgency, urinary frequency, incontinence, nocturia, hematuria, dysuria, foul smelling urine, changes to urinary stream, flank pain, fever, and or chills. He is happy with his current voiding parameters. Discussed at length potential causes for microscopic hematuria may include but are not limited to kidney stones, cancer in the urinary tract, BPH, kidney stone disease or inflammatory conditions of the urinary tract. I have discussed workup to include cystoscopy evaluation. In review of patient's chart it appears urine cytology 09/17 and 10/18 Negative for high-grade urothelial carcinoma. He otherwise offers no other issues or concerns at this time. [facility] Medical History HTN (hypertension) Nicotine dependence, cigarettes, uncomplicated Surgical History History of tonsillectomy Family History Mother No problems noted. Father Pancreatic cancer Social History Housing: House Alcohol intake: current Alcohol intake frequency: a few times a month Alcohol type: beer Patient Tobacco Use Status: Current everyday Tobacco user Cigarettes Per Day: 20 Years Smoked: (onset 20yo, 1ppd x 33yrs, 30+PYH) e-Cigarette/Vaping Use: Never Used service: Yes Current occupational status: employed and retired ([employer] ) Current occupation: [employer] Current occupational exposures/hazards: No Cognitive needs: No Hearing needs: No Vision needs: Yes Review of Systems Const All systems reviewed & are unremarkable except as noted in HPI and below Physical Exam Const General: cooperative, healthy appearing, comfortable, no acute distress, well developed, alert and awake Orientation/consciousness: patient oriented x3 Limitations: no limitations HEENT Head: Yes normal to inspection, Yes normocephalic and Yes atraumatic Ears: hearing grossly normal bilaterally Eyes General: appearance normal, both eyes and all related structures Neck Neck: Yes normal visual inspection and Yes trachea midline Chest Chest palpation & inspection: normal inspection of the chest Resp Effort & Inspection: normal respiratory effort and able to speak in complete sentences Cardio Rate: regular rate GI Inspection: Yes normal to inspection General: Yes no CVA tenderness Back/Spine/Pelvis Back: no CVA tenderness Skin General skin exam: no rashes or lesions noted Neuro General: patient oriented x3 Extrem General: Yes normal to inspection Psych Appearance: grossly normal and well kempt Mental Status: mental status grossly normal Speech and movement: Normal speech and movement present and Clear speech present Affect: normal affect Attitude: cooperative Thought process: Normal thought process present Thought content: Normal thought content present Insight: Fair insight present (Psych) Judgement: Fair judgement present (Psych) Results AMB Urinalysis, Automated UA Leukoctes 0 Bettie/uL Last Edit by Breakout Studiosshine Garcia on 04/12/24 08:33 UA Nitrite Last Edit by SecretSalesbrissa Garcia on 04/12/24 08:33 UA Urobilinogen 0.2 mg/dL Last Edit by SecretSalesbrissa Canarajose on 04/12/24 08:33 UA Protein 0 mg/dL Last Edit by SecretSalesbrissa Canarajose on 04/12/24 08:33 UA pH 6.0 Last Edit by Trueffectjose on 04/12/24 08:33 UA Blood 10 Porfirio/uL Last Edit by Trueffectjose on 04/12/24 08:33 UA Specific [place] 1.020 Last Edit by Trueffectjose on 04/12/24 08:33 UA Ketone Last Edit by Trueffectjose on 04/12/24 08:33 UA Bilirubin 0 mg/dL Last Edit by Trueffectjose on 04/12/24 08:33 UA Glucose 0 mg/dL Last Edit by SecretSalesbrissa Canarajose on 04/12/24 08:33 Results Reviewed Results Reviewed: Laboratory Last Values Urine pH (Auto) 6.0 04/12/24 08:22 Specific [place] (Auto) 1.020 04/12/24 08:22 Urine Protein (Auto) 0 mg/dL 04/12/24 08:22 Glucose (UA)(Auto) 0 mg/dL 04/12/24 08:22 Urine Blood (Auto) 10 Porfirio/uL 04/12/24 08:22 Urine Bilirubin (Auto) 0 mg/dL 04/12/24 08:22 Urine Urobilinogen (Auto) 0.2 mg/dL 04/12/24 08:22 Leukocyte Esterase (Auto) 0 Bettie/uL 04/12/24 08:22 Date of Service: 09/17/23 EXAMINATION: CT ABDOMEN AND PELVIS WITHOUT AND WITH CONTRAST FINDINGS: LUNG BASES: The visualized lung bases are unremarkable. LIVER, GALLBLADDER, AND BILIARY TREE: The liver is enlarged at 17.9 cm in cephalocaudad dimension but demonstrates normal attenuation and shape. No focal hepatic lesion or biliary ductal dilatation is present. The gallbladder is contracted and small but otherwise unremarkable with no evidence of radiopaque gallstones, gallbladder wall thickening, or obvious pericholecystic inflammatory changes. PANCREAS: Unremarkable. SPLEEN: Unremarkable. ADRENAL GLANDS: Unremarkable. KIDNEYS AND URETERS: The kidneys are normal in size, shape, and attenuation. Multiple left-sided benign parapelvic and cortical Bosniak class I renal cysts are noted, which require no additional imaging or followup. No solid renal masses are seen. No hydronephrosis, hydroureter, or calculi seen. No perinephric stranding. No filling defects or masses are seen within the urinary collecting system. BLADDER: The anterior lateral portions of the bladder extend mildly into small direct inguinal hernias bilaterally, right greater than left. GASTROINTESTINAL TRACT: The small and large bowel are unremarkable. The appendix is unremarkable. ABDOMINAL WALL: No significant hernia is appreciated. LYMPH NODES: Normal. VASCULAR: Unremarkable. PELVIC VISCERA: There is mild prostatic enlargement. Seminal vesicles appear symmetrically slightly enlarged. OSSEUS STRUCTURES: Mild scoliosis convex to the left. Mild degenerative changes are present throughout the spine. There is marked grade 1 anterolisthesis of L5 upon S1. IMPRESSION: 1. A cause for the patient's hematuria has not been found. 2. Incidental note made of mild hepatomegaly, benign Bosniak class I left renal cysts which need no additional imaging or followup, small bilateral direct inguinal hernias containing a small amount of the bladder, mild BPH and degenerative changes in the spine with grade 1 anterolisthesis of L5 upon S1. Assessment & Plan Assessment & Plan (1) Microhematuria: Code(s): R31.29 - Other microscopic hematuria Category: Medical (2) Nicotine dependence, cigarettes, uncomplicated: Comment: (current smoker, onset 20yo, 1ppd x 33yrs, 30+PYH) Code(s): F17.210 - Nicotine dependence, cigarettes, uncomplicated Category: Medical (3) Nicotine dependence: Code(s): F17.200 - Nicotine dependence, unspecified, uncomplicated Category: Medical Plan In office urinalysis results reviewed with the patient today; as noted above; will send for urine cytology. Discussed at length potential causes for microscopic hematuria in the setting of nicotine dependence. Discussed further workup to include in office cystoscopy; risks and benefits of these interventions were discussed. All questions were answered. Patient currently denies any bothersome urinary issues. He reports be happy with current voiding parameters. He does not wish to undergo an office cystoscopy; discussed possible delay in treatment. He is aware. Follow-up in 6 months; or sooner with any issues, concerns, and or questions. Orders: Orders Urine Cytology Today R31.29 - Other microscopic hematuria AMB Urinalysis Automated Today Z13.9 - Encounter for screening, unspecified Patient Instructions: The patient had an opportunity to ask questions regarding the treatment plan. All questions were answered. Physical exam, labs, and imaging were discussed and reviewed in detail. As well as risks, benefits, and discussion of treatment choices. No major barriers to understanding were identified. The patient expressed understanding and agreement with the above treatment plan. The patient was made aware they should contact our office by phone for worsening of their current condition, the appearance of new symptoms, or with any questions or concerns. Compliance is encouraged with any medications and follow up testing that is ordered. It is a privilege to be allowed the opportunity to participate in? your urological care.? Again, if you have any questions or concerns If you have any questions or concerns please do not hesitate to contact me. The office is [phone]. This note is constructed using voice recognition software. While every effort has been made to ensure accuracy barrel roller errors may have been included. Yours sincerely, KEREN Faith Coding Level of Care Code Est Pt Level 3 (17226) Diagnoses Microhematuria R31.29 Nicotine dependence, cigarettes, uncomplicated F17.210 Nicotine dependence F17.200
== END 2024-04-12 08:50 | disposition home or self-care (01) ==
PROVIDERS: PCP Nurse Practitioner Family; Visit Provider Nurse Practitioner Family
DX: R31.29 Other microscopic hematuria (principal); F17.210 Nicotine dependence, cigarettes, uncomplicated; F17.200 Nicotine dependence, unspecified, uncomplicated; Z13.9 Encounter for screening, unspecified
CPT/HCPCS: 99213

== ENCOUNTER 2024-04-12 08:16 | Outpatient (REF) | payer OTHER, SELFPAY | END 2024-04-12 08:17 | disposition home or self-care (01) | LOC: HO.LNP 08:16 | PROVIDERS: PCP Nurse Practitioner Family; Visit Provider Nurse Practitioner Family | DX: R31.29 Other microscopic hematuria (principal); F17.200 Nicotine dependence, unspecified, uncomplicated | CPT/HCPCS: 81003; 99212 ==

== ENCOUNTER 2024-04-12 09:31 | Outpatient (REF) | payer OTHER, SELFPAY ==
[2024-04-12 13:07] LABS: Appearance Urine Clear; Color Urine Yellow; Glucose Urine UA Negative (Negative); Leukocyte Esterase Urine Negative (Negative); Nitrite Urine Negative (Negative); Urine Blood Negative (Negative); Urine Ketones Negative (Negative); Urine Protein Negative (Neg-Trace)
[2024-04-12 13:16] LABS: MANUAL DIFF FLAG NO
[2024-04-12 13:20] LABS: Basophils Percent Auto 0.4 % (0-2); Eosinophils Absolute Auto 0.1 X10*3/uL (0.0-0.4); Eosinophils Percent Auto 0.7 % (0-4); Hematocrit 41.2 % (42.0-52.0); Imm Gran Abs Auto 0.03 X10*3/uL (0.00-0.03); Imm Gran Pct Auto 0.4 % (0.0-0.4); Lymphocytes Absolute Auto 1.3 X10*3/uL (1.2-4.9); Lymphocytes Percent Auto 14.8 % (20-40); Mean Corpuscular Hemoglobin 32.6 pg (27.0-33.0); Mean Corpuscular Volume 95.8 fL (80.0-98.0); Mean Platelet Volume 10.1 fL (9.4-12.4); Monocytes Absolute Auto 0.6 X10*3/uL (0.1-1.2); Monocytes Percent Auto 6.9 % (2-11); Neutrophils Absolute Auto 6.6 x10*3/uL (2.0-8.3); Neutrophils Percent Auto 76.8 % (45-73); Platelet Count 341 X10*3/uL (160-400); Red Cell Distribution Width 13.4 % (11.0-16.0); White Blood Count 8.5 X10*3/uL (4.8-10.8)
[2024-04-12 13:52] LABS: Alanine Aminotransferase 24 U/L (0-40); Albumin Level 4.2 g/dL (3.5-5.0); Alkaline Phosphatase 55 U/L (39-117); Anion Gap 9 (12-20); Aspartate Amino Transferase 30 U/L (5-37); Bilirubin Direct 0.2 mg/dL (0.0-0.5); Bilirubin Total 0.5 mg/dL (0.0-1.0); Blood Urea Nitrogen 17 mg/dL (9-16); Calcium 8.7 mg/dL (8.4-10.2); Carbon Dioxide 26 mmol/L (22-29); Chloride 107 mmol/L (96-108); Estimated Glomerular Filt Rate > 60; Glucose Random 97 mg/dL (60-115); Iron 82 mcg/dL (45-160); Percent Iron Saturation 25 % (15-50); Potassium 3.9 mmol/L (3.3-5.1); Sodium 138 mmol/L (135-145); Total Iron Binding Capacity 332 mcg/dL (228-428); Total Protein 6.6 g/dL (6.5-8.0); Unsaturated Iron Binding 250 ug/dL
[2024-04-12 14:02] LABS: Ferritin 130 ng/mL (20-250)
[2024-04-12 14:26] LABS: Gamma Glutamyl Transpeptidase 12 U/L (11-51)
[2024-04-12 16:30] LABS: Urine Cytology See Pathology rpt
[2024-04-13 08:08] LABS: HBS Num1 353.38 mIU/mL (0-7.99); HBsAGNum1 0.38 S/CO (0.00-0.99); Hepatitis A Antibody IgM 0.28 Index (0-0.79); Hepatitis B Core Antibody Nonreactive (Nonreactive); Hepatitis B Surface Antigen Negative (Negative); ~HepC Num1 0.12 S/CO (0.00-0.79); ~Hepatitis A Antibody IgM Nonreactive (Nonreactive); ~Hepatitis B Surface Antibody REACTIVE (Nonreactive); ~Hepatitis C Antibody Nonreactive (Nonreactive)
[2024-04-13 11:03] LABS: Carbohydrate Antigen 19-9 3 U/mL (<34)
== END 2024-04-12 09:32 | disposition home or self-care (01) ==
LOC: HO.HMGCLDS 09:31
PROVIDERS: Nurse Practitioner Family; PCP Nurse Practitioner Family; Visit Provider Nurse Practitioner Family
DX: R16.0 Hepatomegaly, not elsewhere classified (principal); Z80.0 Family history of malignant neoplasm of digestive organs; I10 Essential (primary) hypertension; R31.29 Other microscopic hematuria
CPT/HCPCS: 36415; 80053; 81003; 82248; 82728; 82977; 83540; 85025; 86301; 86704; 86706; 86709; 86803; 87340; 88112

== ENCOUNTER 2024-05-17 09:59 | Outpatient (AMB) | payer OTHER, SELFPAY ==
[2024-05-17 10:03] VITALS: BP 122/80; PULSE 70; O2SAT 98; BMI 21.9
--- NOTE | 2024-05-17 10:03 | MHC.PC.OV ---
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 History of Present Illness The patient is a 53-year-old male presenting with hypertension. His systolic blood pressure has been observed to be in the range of 130s to 140s, but he has shown improvement in office settings. Despite this, there is a need for continued monitoring and management. He has been on current antihypertensive medications, which he will continue, and additional laboratory tests are planned to further assess and manage his condition. The patient also requires a colonoscopy, given his age and the potential familial risk factors associated with colon carcinoma. He has a history of smoking, which may affect his cardiovascular health and is enrolled in a low dose CT scan program as a preventive measure. Overall, his condition is under ongoing evaluation for effective management and health maintenance. Social History - Tobacco Use: The patient is a smoker. Health Maintenance - Referral for colonoscopy due to age and potential colon carcinoma risk. - Enrollment in low dose CT scan program. Review of Systems Physical Exam General: Cooperative, healthy appearing, comfortable, no acute distress and well developed Orientation: Patient oriented x3 Limitations: No limitations Head: Normal to inspection Ears: Hearing grossly normal bilaterally Nose: Normal external nose present Face and sinus: Normal facial exam Eyes: Appearance normal, both eyes and all related structures Neck: Normal visual inspection and Yes full ROM Respiratory: Normal respiratory effort and able to speak in complete sentences. Clear to auscultation bilaterally Cardiovascular: Regular rate and rhythm. Normal S1 and S2 GI: Normal to inspection. Soft to palpation and nontender Skin: No rashes or lesions noted Neuro: Patient oriented x3 Extremities: Normal to inspection, no edema Results Plan - Continue current antihypertensive medications for Essential Hypertension. - Schedule repeat laboratory tests for further evaluation of blood pressure control. - Referral for a colonoscopy due to age and potential colon carcinoma risk. - Ongoing enrollment in a low dose CT scan program as a preventive measure for smokers. Patient was informed and verbally consented to the use of an ambient scribe for clinic note documentation during this visit. Discussion Notes I discussed with the patient that his hypertension management is progressing well, given the lower systolic readings observed in the office setting. We reviewed the importance of adherence to his current medication regimen and the necessity for follow-up labs to ensure optimal blood pressure control. The need for a colonoscopy was explained, emphasizing the importance in relation to age and potential family history of colon carcinoma. He is reminded of the adverse effects of smoking on his health, and his participation in the low dose CT scan program was acknowledged as a proactive screening tool. The patient expressed understanding of the management plan and agreed to proceed with the recommended interventions and follow-up procedures. Patient Instructions - Continue taking prescribed blood pressure medications as directed. - Attend the scheduled laboratory tests for blood pressure evaluation. - Undergo the referred colonoscopy. - Remain enrolled in and follow up with the low dose CT scan program. - Consider smoking cessation options to improve overall health. [facility] Medical History HTN (hypertension) Nicotine dependence, cigarettes, uncomplicated Surgical History History of tonsillectomy Family History Mother No problems noted. Father Pancreatic cancer Social History Housing: House Alcohol intake: current Alcohol intake frequency: a few times a month Alcohol type: beer Patient Tobacco Use Status: Current everyday Tobacco user Cigarettes Per Day: 20 Years Smoked: (onset 20yo, 1ppd x 33yrs, 30+PYH) e-Cigarette/Vaping Use: Never Used service: Yes Current occupational status: employed and retired ([employer] ) Current occupation: [employer] Current occupational exposures/hazards: No Cognitive needs: No Hearing needs: No Vision needs: Yes Questionnaire PHQ-9 Over the last 2 weeks, how often have you been bothered by any of the following problems? 1. Little interest or pleasure in doing things: not at all 2. Feeling down, depressed, or hopeless: not at all 3. Trouble falling or staying asleep, or sleeping too much: not at all 4. Feeling tired or having little energy: not at all 5. Poor appetite or overeating: not at all 6. Feeling bad about yourself - or that you are a failure or have let yourself or your family down: not at all 7. Trouble concentrating on things, such as reading the newspaper or watching television: not at all 8. Moving or speaking so slowly that other people could have noticed. Or the opposite - being so fidgety or restless that you have been moving around a lot more than usual: not at all 9. Thoughts that you would be better off or of hurting yourself in some way: not at all Total score: 0 Depression Screening Interpretation: Negative Depression Screening Done: Yes 98228 - PHQ-9 Billing: Yes Source: Developed by Drs. Patrice Baires, Suzy Calderón, Elio Garcia and colleagues, with an educational lit from [employer]. Thrive Questionnaire Date Thrive assessed: 05/17/24 I am a: Patient What is your living situation today?: I have a steady place to live Within the past 12 months, did the food you bought not last and you didn't have the money to get more?: Never true Within the past 12 months, did you worry whether your food would run out before you got money to buy more?: Never true Do you have trouble paying for medicines?: No Do you have trouble getting transportation to medical appointments?: No Do you have trouble paying your heating and electricity bill?: No Do you have trouble taking care of your child, family member or friend?: No Do you have trouble with day-to-day activities such as bathing, preparing meals, shopping, managing finances, etc.?: No Are you currently unemployed and looking for a job?: No Are you interested in more education?: No Please select the resources that you would like help with: Job search/training Currently or been in a relationship where the following occur: No concerns reported THRIVE Score: 0 AUDIT C Alcohol Use Questionnaire (AUDIT-C) 1. How often do you have a drink containing alcohol?: 2-3 times a week 2. How many drinks containing alcohol do you have on a typical day when you are drinking?: 3 or 4 3. How often do you have six or more drinks on one occasion?: Never Total Score: 4 Score Reviewed/Action Taken: Yes SUMAYA-7 AMB Questionnaire SUMAYA-7 Date SUMAYA - 7 assessed: 05/17/24 Feeling nervous, anxious, or on edge: 0 = Not at all Not being able to stop or control worryin = Not at all Worrying too much about different things: 0 = Not at all Trouble relaxin = Not at all Being so restless that it is hard to sit still: 0 = Not at all Becoming easily annoyed or irritable: 0 = Not at all Feeling afraid as if something awful might happen: 0 = Not at all Total SUMAYA-7 score (0-4 normal; 5-9 mild; 10-14 moderate; 15-21 severe): 0 Source: Developed by Drs. Patrice Baires, Suzy Calderón, Elio Garcia and colleagues, with an educational lit from [employer]. SUMAYA-7 Assessment Billing SUMAYA-7 Assessment Tool: SUMAYA-7 Assessment 16257 Physical exam (Primary Care) Vital Signs: Last Vital Signs Pulse 70 05/17/24 10:03 BP 122/80 05/17/24 10:03 Pulse Ox 98 05/17/24 10:03 Oxygen Delivery Method Room Air 05/17/24 10:03 BMI result Body Mass Index 21.9 Tobacco/Smoking Status: Tobacco use Status Tobacco use date assessed 05/17/24 05/17/24 10:04 Patient Tobacco Use Status Current everyday Tobacco 05/17/24 10:04 e-Cigarette/Vaping Use Never Used 05/17/24 10:04 PHQ-9: PHQ-9 Score PHQ-9: Total score 0 05/17/24 10:57 Depression Screening Interpretation: Negative Thrive Assessment: Date of Thrive Assessment Date Thrive assessed 05/17/24 05/17/24 10:04 Currently or been in a relationship where the following occur: No concerns reported Coding Level of Care Code Est Pt Level 3 (83197) Diagnoses HTN (hypertension) I10 Screening for colon cancer Z12.11 Screening PSA (prostate specific antigen) Z12.5 Additional Codes SUMAYA-7 Assessment Billing - SUMAYA-7 Assessment Tool: SUMAYA-7 Assessment 71317 ([id number]) PHQ-9 - 83461 - PHQ-9 Billing: Yes ([id number]) Assessment & Plan Assessment & Plan (1) HTN (hypertension): Code(s): I10 - Essential (primary) hypertension Category: Medical (2) Screening for colon cancer: Code(s): Z12.11 - Encounter for screening for malignant neoplasm of colon Category: Medical (3) Screening PSA (prostate specific antigen): Code(s): Z12.5 - Encounter for screening for malignant neoplasm of prostate Category: Medical Plan . Orders: Orders Comprehensive [place]. Panel Fast Today I10 - Essential (primary) hypertension TSH reflex Free T4 Today I10 - Essential (primary) hypertension Lipid Panel Today I10 - Essential (primary) hypertension Prostate Specific Antigen Scr Today Z12.5 - Encounter for screening for malignant neoplasm of prostate Complete Blood Count Auto Diff Today I10 - Essential (primary) hypertension UA CC w/rflx Micro + Cult Today I10 - Essential (primary) hypertension Referrals Gastroenterology Referral Z12.11 - Encounter for screening for malignant neoplasm of colon
--- OUTSIDE RECORDS SUMMARY | 2024-05-17 11:17 | XMS_ITS | Clinical Summary ---
Author Organization [facility] Address [phone] [place] [id number] Care Team Providers Care Iron Erector Name Role Phone William Medley NP Primary Care Provider [phone] Social History Tobacco Use Types Packs/Day Years Used Date Smoking Tobacco: Never Assessed Education Answer Date Recorded Are you interested in more education? Not on cecile e 11/04/2023 Are you concerned about learning? Not on file 11/04/2023 No 11/04/2023 No 11/04/2023 Digital Access Answer Date Recorded No 11/04/2023 No 11/04/2023 Reliable internet access at home? Not on file 11/04/2023 Device with a working camera? Not on file Sex and Gender Information Value Date Recorded Sex Assigned at Male 11/22/2023 8:28 PM EDT Gender Identity Male 11/22/2023 8:28 PM EDT Sexual Orientation Not on file Last Filed Vital Signs Vital Sign Reading Time Taken Comments Blood Pressure - - Pulse - - Temperature - - Respiratory Rate - - Oxygen Saturation - - Inhaled Oxygen Concentration - - Weight 68 kg (150 lb) 11/11/2023 12:29 PM EDT Height 180.3 cm (5' 11 ) 11/11/2023 12:29 PM EDT Body Mass Index 20.92 11/11/2023 12:29 PM EDT Plan of Treatment Not on file Medical Devices Not on file Care Teams Iron Erector Relationship Specialty Start Date End Date William Medley NP [address] [place] [address] [email or web address] [email or web address] - General Nurse Practitioner 11/04/23 Additional Source Comments The information contained in this document represents components of the legal health record. It is not the complete legal health record.[facility]
--- OUTSIDE RECORDS SUMMARY | 2024-05-17 11:17 | XMS_ITS | Encounter Summary ---
Author Organization [facility] Address [phone] [place] [id number] Care Team Providers Care Videotape Sales Representative Name Role Phone William Medley FUNDRAISING MANAGER Primary Care Provider + [phone] Reason for Referral * MRI/CAT Scan - Closed Specialty Diagnoses / Procedures Referred By Jesse garza Referred To Contact Radiology Diagnoses Radiculopathy, cervical region Other cervical disc degeneration, mid-cervical region, unspecified level Procedures MRI Cervical Spine William Medley NP [address] [place] [address] Referral ID Status Reason Start Date Expiration Date Visits Re quested Visits Authorized [id number] Closed 10/23/2023 10/22/2024 1 1 Encounter Details Date Type Department Care Team (Latest Contact Info) Description 10/23/2023 Transcribe Orders Virtual Department [address] [place] [phone] William Medley NP [address] [place] [address] .Accruent Radiculopathy, cervical region (Primary Dx); Other cervical disc degeneration, mid-cervical region, unspecified level Social History Tobacco Use Types Packs/Day Years Used Date Smoking Tobacco: Never Assessed Sex and Gender Information Value Date Recorded Sex Assigned at Male 11/22/2023 8:28 PM EDT Gender Identity Male 11/22/2023 8:28 PM EDT Sexual Orientation Not on file documented as of this encounter Plan of Treatment Not on file documented as of this encounter Results * MRI CERVICAL SPINE (NEURO) FOCUS WITHOUT CONTRAST (11/20/2023 7:21 AM EDT) Anatomical Region Laterality Modality C-spine Magnetic Resonan ce 11/24/2023 8:39 AM EDT Impressions 11/24/2023 9:04 AM EDT 1. ??Cervical spondylosis, severe at C5-C6, with moderate to severe canal stenosis and compression/flattening of the cord. 2. ??Suggestion of possible hazy T2 hyperintense signal in the cord at C5-C6, raising concern for compressive myelopathy. 3. ??Foraminal stenosis at multiple levels, severe at C5-C6 and C6-C7. 4. ??Other findings, as above. A clinically significant result was initiated on 11/24/2023 9:04 AM, Message ID [id number]. Narrative 11/24/2023 9:04 AM EDT MRI CERVICAL SPINE (NEURO) FOCUS WITHOUT CONTRAST Referring clinician's provided indication for this examination in Epic: Outside Radiology Order; radiculopathy cervical region TECHNIQUE: MRI CERVICAL SPINE (NEURO) FOCUS WITHOUT CONTRAST Multi-sequence, multi-planar MRI of the cervical spine was performed without intravenous contrast. COMPARISON: None. FINDINGS: CERVICAL SPINE: Alignment and Vertebrae: Vertebral alignment and body heights are well- maintained. No compression fracture Marrow: No bone marrow replacing lesion. Bone hemangioma seen at C6. Discs and Endplates: There is loss of disc height and signal at C5-C6 and C6-C7 probably Modic type II endplate changes. Spinal Cord: Due to canal stenosis there is flattening of the cord at C5-C6 and C6-C7. Possible subtle T2 hyperintense signal in the cord at C5-C6 only seen on the sagittal T2-weighted sequence. This could be artifactual or could be secondary to compressive myelopathy. Soft Tissue: No prevertebral edema. Other findings: Focal T2 hyperintensity in the right mastoid, probably tiny effusion. There is a tiny nodule on the right thyroid lobe measuring 4 mm. Findings by level: C2-C3: No spinal or foraminal stenosis. C3-C4: No spinal or foraminal stenosis. C4-C5: Mild disc bulging. Mild uncovertebral arthropathy and bilateral facet joint hypertrophy. No high-grade spinal canal stenosis. Moderate foraminal stenosis. C5-C6: Disc/osteophyte complex. This is indenting/flattening the cord and there is moderate to severe spinal canal stenosis. Uncovertebral arthropathy and facet joint disease noted. There is severe bilateral foraminal stenosis. C6-C7: Disc/osteophyte complex. Moderate spinal canal stenosis. Uncovertebral and facet joint arthropathy with severe bilateral foraminal stenosis. C7-T1: Facet joint hypertrophy. No significant spinal canal stenosis. Moderate right greater than foraminal stenosis. Procedure Note Teresa Ferreira MD - 11/24/2023 MRI CERVICAL SPINE (NEURO) FOCUS WITHOUT CONTRAST Referring clinician's provided indication for this examination in Epic:Outside Radiology Order; radiculopathy cervical region TECHNIQUE: MRI CERVICAL SPINE (NEURO) FOCUS WITHOUT CONTRAST Multi-sequence, multi-planar MRI of the cervical spine was performedwithout intravenous contrast. COMPARISON: None. FINDINGS: CERVICAL SPINE: Alignment and Vertebrae: Vertebral alignment and body heights arewell- maintained. No compression fracture Marrow: No bone marrow replacing lesion. Bone hemangioma seen at C6. Discs and Endplates: There is loss of disc height and signal at C5-C6 andC6-C7 probably Modic type II endplate changes. Spinal Cord: Due to canal stenosis there is flattening of the cord atC5-C6 and C6-C7. Possible subtle T2 hyperintense signal in the cord atC5-C6 only seen on the sagittal T2-weighted sequence. This could beartifactual or could be secondary to compressive myelopathy. Soft Tissue: No prevertebral edema. Other findings: Focal T2 hyperintensity in the right mastoid, probablytiny effusion. There is a tiny nodule on the right thyroid lobe measuring4 mm. Findings by level: C2-C3: No spinal or foraminal stenosis. C3-C4: No spinal or foraminal stenosis. C4-C5: Mild disc bulging. Mild uncovertebral arthropathy and bilateralfacet joint hypertrophy. No high-grade spinal canal stenosis. Moderateforaminal stenosis. C5-C6: Disc/osteophyte complex. This is indenting/flattening the cord andthere is moderate to severe spinal canal stenosis. Uncovertebralarthropathy and facet joint disease noted. There is severe bilateralforaminal stenosis. C6-C7: Disc/osteophyte complex. Moderate spinal canal stenosis.Uncovertebral and facet joint arthropathy with severe bilateral foraminalstenosis. C7-T1: Facet joint hypertrophy. No significant spinal canal stenosis.Moderate right greater than foraminal stenosis. IMPRESSION: 1. Cervical spondylosis, severe at C5-C6, with moderate to severe canalstenosis and compression/flattening of the cord. 2. Suggestion of possible hazy T2 hyperintense signal in the cord atC5-C6, raising concern for compressive myelopathy. 3. Foraminal stenosis at multiple levels, severe at C5-C6 and C6-C7. 4. Other findings, as above. A clinically significant result was initiated on 11/24/2023 9:04 AM,Message ID [id number]. William Medley NP IMG MR XSPECIALTY documented in this encounter Visit Diagnoses Diagnosis Radiculopathy, cervical region- Primary Brachial neuritis or radiculitis nos Other cervical disc degeneration, mid-cervical region, unspecified level Radiculopathy, cervical region Brachial neuritis or radiculitis nos Other cervical disc degeneration, mid-cervical region, unspecified level documented in this encounter Care Teams Videotape Sales Representative Relationship Specialty Start Date End Date William Medely NP [address] [place] [address] .Accruent PCP - General Nurse Practitioner 11/04/23 documented as of this encounter Additional Source Comments The information contained in this document represents components of the legal health record. It is not the complete legal health record.[facility]
--- OUTSIDE RECORDS SUMMARY | 2024-05-17 11:17 | XMS_ITS | Encounter Summary ---
Author Organization [facility] Address [phone] Count includes the [facility] [place] [address] Care Team Providers Care Towel Weaver Name Role Phone William Medley SUPERVISOR PIPE JOINTS Primary Care Provider [phone] Encounter Details Date Type Department Care Team (Late st Contact Info) Description 10/23/2023 Procedure Pass [facility], [address] [place] [address] Social History Tobacco Use Types Packs/Day Years Used Date Smoking Tobacco: Never Assessed Sex and Gender Information Value Date Recorded Sex Assigned at Male 11/22/2023 8:28 PM EDT Gender Identity Male 11/22/2023 8:28 PM EDT Sexual Orientation Not on file documented as of this encounter Plan of Treatment Not on file documented as of this encounter Visit Diagnoses Not on filedocumented in this encounter Care Teams Towel Weaver Relationship Specialty Start Date End Date William Medley NP [address] [place] [address] [email or web address] PCP - General Nurse Practitioner 11/04/23 documented as of this encounter Additional Source Comments The information contained in this document represents components of the legal health record. It is not the complete legal health record.[facility]
== END 2024-05-17 11:07 | disposition home or self-care (01) ==
PROVIDERS: PCP Nurse Practitioner Family; Visit Provider Nurse Practitioner Family
DX: I10 Essential (primary) hypertension (principal); Z12.11 Encounter for screening for malignant neoplasm of colon; Z12.5 Encounter for screening for malignant neoplasm of prostate

== ENCOUNTER → 2024-05-17 09:59 | Outpatient (BNVA) | payer OTHER, SELFPAY | PROVIDERS: PCP Nurse Practitioner Family; Visit Provider Nurse Practitioner Family | DX: I10 Essential (primary) hypertension (principal); F17.200 Nicotine dependence, unspecified, uncomplicated; Z71.6 Tobacco abuse counseling | CPT/HCPCS: 96127; 99212 ==

== ENCOUNTER 2024-10-11 08:06 | Outpatient (REF) | payer OTHER, SELFPAY | END 2024-10-11 08:07 | disposition home or self-care (01) | LOC: HO.LNP 08:06 | PROVIDERS: PCP Nurse Practitioner Family; Visit Provider Nurse Practitioner Family | DX: F17.210 Nicotine dependence, cigarettes, uncomplicated (principal); R31.29 Other microscopic hematuria | CPT/HCPCS: 81003; 99212 ==

== ENCOUNTER 2024-10-11 08:06 | Outpatient (AMB) | payer OTHER, SELFPAY ==
--- NOTE | 2024-10-11 08:16 | MHC.OFFVIS ---
Intake Visit Reasons: 6M follow up Cytology Intake Note: Patient presents today for 6m follow up on : Cytology Urology Medications: none Allergies to Antibiotic: none Blood Thinner: none Smoker: yes, 20-30yrs Last cytology 10/13/23 Child And Adolescent Therapist Required: No Accompanied by: Self / Same As Patient Allergies No Known Allergies Allergy (Verified 10/11/24 08:52) Medication List - Last Reconciled 10/11/24 by MIGEL Faith- lisinopril 2.5 mg PO DAILY HPI Comments Details: Miko Weeks is a very pleasant 53-year-old male patient of Dr. Meraz. He presents to the office today for follow-up of his microscopic hematuria in the setting of nicotine dependence. In discussion with the patient today he reports to be doing and feeling well. When asked he continues to smoke cigarettes. In office urinalysis results reviewed with the patient today no microscopic hematuria noted. Previous workup has included CT urogram 09/17 noting the kidneys are normal in size, shape, and attenuation. Multiple left-sided benign peripelvic and cortical Bosniak class 1 renal cysts are noted which require no additional follow-up per radiology report. No solid renal masses are seen. No hydronephrosis, hydroureter, or calculi seen. The anterior lateral position of the bladder extended mildly into the small direct inguinal hernias bilaterally, right greater than left. We discussed at length potential causes of microscopic hematuria as well as further workup to include cystoscopy. He otherwise denies any bothersome urinary issues or concerns. He denies urinary urgency, urinary frequency, incontinence, nocturia, hematuria, dysuria, foul smelling urine, changes to urinary stream, flank pain, fever, and or chills. He is happy with his current voiding parameters. Discussed at length potential causes for microscopic hematuria may include but are not limited to kidney stones, cancer in the urinary tract, BPH, kidney stone disease or inflammatory conditions of the urinary tract. I have discussed workup to include cystoscopy evaluation. In review of patient's chart it appears urine cytology 09/17 and 10/18, 04/19 Negative for high-grade urothelial carcinoma. He does report a new shift change in his job in his now working 3rd shift. We discussed intermittent microscopic hematuria versus persistent microscopic hematuria. Will continue with surveillance monitoring at this time. He otherwise offers no other issues or concerns at this time. PSA 01/18 0.2. PFSH Medical History HTN (hypertension) Nicotine dependence, cigarettes, uncomplicated Surgical History History of tonsillectomy Family History Mother No problems noted. Father Pancreatic cancer Social History Housing: House Alcohol intake: current Alcohol intake frequency: a few times a month Alcohol type: beer Patient Tobacco Use Status: Current everyday Tobacco user Cigarettes Per Day: 20 Years Smoked: (onset 20yo, 1ppd x 33yrs, 30+PYH) e-Cigarette/Vaping Use: Never Used service: Yes Current occupational status: employed and retired ([employer] ) Current occupation: [employer] Current occupational exposures/hazards: No Cognitive needs: No Hearing needs: No Vision needs: Yes Review of Systems Const All systems reviewed & are unremarkable except as noted in HPI and below Physical Exam Const General: cooperative, healthy appearing, comfortable, no acute distress, well developed, alert and awake Orientation/consciousness: patient oriented x3 Limitations: no limitations HEENT Head: Yes normal to inspection, Yes normocephalic and Yes atraumatic Ears: hearing grossly normal bilaterally Eyes General: appearance normal, both eyes and all related structures Neck Neck: Yes normal visual inspection and Yes trachea midline Chest Chest palpation & inspection: normal inspection of the chest Resp Effort & Inspection: normal respiratory effort and able to speak in complete sentences Cardio Rate: regular rate GI Inspection: Yes normal to inspection General: Yes no CVA tenderness Back/Spine/Pelvis Back: no CVA tenderness Skin General skin exam: no rashes or lesions noted Neuro General: patient oriented x3 Extrem General: Yes normal to inspection Psych Appearance: grossly normal and well kempt Mental Status: mental status grossly normal Speech and movement: Normal speech and movement present and Clear speech present Affect: normal affect Attitude: cooperative Thought process: Normal thought process present Thought content: Normal thought content present Insight: Fair insight present (Psych) Judgement: Fair judgement present (Psych) Results AMB Urinalysis, Automated UA Leukoctes 0 Bettie/uL Last Edit by Elizabeth Laughlin on 10/11/24 08:23 UA Nitrite Negative Last Edit by Elizabeth Laughlin on 10/11/24 08:23 UA Urobilinogen 3.5 mg/dL Last Edit by Elizabeth Laughlin on 10/11/24 08:23 UA Protein 0 mg/dL Last Edit by Elizabeth Laughlin on 10/11/24 08:23 UA pH 6.0 Last Edit by Elizabeth Laughlin on 10/11/24 08:23 UA Blood 0 Porfirio/uL Last Edit by Elizabeth Laughlin on 10/11/24 08:23 UA Specific Kaiser 1.005 Last Edit by Elizabeth Laughlin on 10/11/24 08:23 UA Ketone Negative Last Edit by Elizabeth Laughlin on 10/11/24 08:23 UA Bilirubin 0 mg/dL Last Edit by Elizabeth Laughlin on 10/11/24 08:23 UA Glucose 0 mg/dL Last Edit by Elizabeth Laughlin on 10/11/24 08:23 Results Reviewed Results Reviewed: Laboratory Last Values Urine pH (Auto) 6.0 10/11/24 08:19 Specific Kaiser (Auto) 1.005 10/11/24 08:19 Urine Protein (Auto) 0 mg/dL 10/11/24 08:19 Glucose (UA)(Auto) 0 mg/dL 10/11/24 08:19 Urine Ketones (Auto) Negative 10/11/24 08:19 Urine Blood (Auto) 0 Porfirio/uL 10/11/24 08:19 Urine Nitrite (Auto) Negative 10/11/24 08:19 Urine Bilirubin (Auto) 0 mg/dL 10/11/24 08:19 Urine Urobilinogen (Auto) 3.5 mg/dL 10/11/24 08:19 Leukocyte Esterase (Auto) 0 Bettie/uL 10/11/24 08:19 Assessment & Plan Assessment & Plan (1) Nicotine dependence, cigarettes, uncomplicated: Comment: (current smoker, onset 20yo, 1ppd x 33yrs, 30+PYH) Code(s): F17.210 - Nicotine dependence, cigarettes, uncomplicated Category: Medical (2) Microhematuria: Code(s): R31.29 - Other microscopic hematuria Category: Medical Plan In office urinalysis results reviewed with the patient today; as noted above; will send for urine cytology. We discussed potential causes of intermittent microscopic hematuria We discussed the importance of limiting/quitting nicotine dependence for overall health and well-being. He currently denies any bothersome urinary issues or concerns. He reports be happy with current voiding. Will continue with surveillance monitoring. Will obtain PSA for further assessment evaluation. Follow-up in 6 months with lab to be completed prior; or sooner with any issues, concerns, and or questions. Orders: Orders AMB Urinalysis Automated Today Z13.9 - Encounter for screening, unspecified Prostate Specific Antigen Today Z12.5 - Encounter for screening for malignant neoplasm of prostate Urine Cytology Today R31.29 - Other microscopic hematuria Patient Instructions: The patient had an opportunity to ask questions regarding the treatment plan. All questions were answered. Physical exam, labs, and imaging were discussed and reviewed in detail. As well as risks, benefits, and discussion of treatment choices. No major barriers to understanding were identified. The patient expressed understanding and agreement with the above treatment plan. The patient was made aware they should contact our office by phone for worsening of their current condition, the appearance of new symptoms, or with any questions or concerns. Compliance is encouraged with any medications and follow up testing that is ordered. It is a privilege to be allowed the opportunity to participate in? your urological care.? Again, if you have any questions or concerns If you have any questions or concerns please do not hesitate to contact me. The office is [phone]. This note is constructed using voice recognition software. While every effort has been made to ensure accuracy public works laborer errors may have been included. Yours sincerely, KEREN Faith Coding Level of Care Code Est Pt Level 3 (66625) Diagnoses Nicotine dependence, cigarettes, uncomplicated F17.210 Microhematuria R31.29
== END 2024-10-11 08:46 | disposition home or self-care (01) ==
LOC: HO.HUSH 08:07
PROVIDERS: PCP Nurse Practitioner Family; Visit Provider Nurse Practitioner Family
DX: F17.210 Nicotine dependence, cigarettes, uncomplicated (principal); R31.29 Other microscopic hematuria; Z13.9 Encounter for screening, unspecified
CPT/HCPCS: 99213

== ENCOUNTER 2024-12-07 07:33 | Outpatient (AMB) | payer OTHER, SELFPAY ==
--- OUTSIDE RECORDS SUMMARY | 2024-12-07 07:35 | XMS_ITS | Clinical Summary ---
Author Organization [facility] Address [address] [place] [phone] Phone Care Team Providers Care Director Of Agriculture Name Role Phone William Medley NP Primary Care Provider [phone] Social History Tobacco Use Types Packs/Day Years [...] Assigned at Male 11/22/2023 8:28 PM EDT Legal Sex Male 8:14 AM EDT Gender Identity Male 11/22/2023 8:28 PM [...] on file Medical Devices Not on file Insurance SELECT SELECT SELECT SELECT SELECT SELECT Care Teams Director Of Agriculture Relationship Specialty Start Date End Date William Medley NP [address] [place] [address] [email or web address] PCP - General Nurse Practitioner 11/04/23 Additional Source Comments The information contained in this document represents components of the legal health record. It is not the complete legal health record.[facility]
[2024-12-07 08:06] VITALS: BP 136/78; PULSE 66; O2SAT 99; BMI 22.3
--- NOTE | 2024-12-07 08:06 | MHC.OFFVIS ---
Vital Signs 12/07/24 08:06 Height 5 ft 11 in Weight 160 lb BMI 22.3 BP 136/78 Blood Pressure Location Rt brachial Position Sitting Pulse 66 Pulse Source Pulse Oximeter Pulse Oximetry (%) 99 Oxygen Delivery Method Room Air Intake Visit Reasons: Colonoscopy Screening Intake Note: New pt for initial colo screening. CC; Pt denies any GI sx or concerns at this time. No pertinent FMHx. Granite Block Paver Required: No Accompanied by: Self / Same As Patient Allergies No Known Allergies Allergy (Verified 12/07/24 08:11) HPI HPI Colonoscopy Screening: Details: 54 year old? male with past medical history of hypertension is here today for pre colonoscopy screening.? Patient was sent to us by his PCP.? This is his first colonoscopy screening.? Patient denies any gastrointestinal symptoms in the past or at present.? However patient reports that sometimes he will have blood after wiping. Was told that he has hemorrhoids. Denies any personal or family history of gastrointestinal disease, colon polyps, or CRC.? Denies history of difficulty with sedation or anesthesia in the past.? Negative for history of sleep apnea.? Denies any history of cardiac, renal, pulmonary, or hepatic disease.?? No history of infectious? diseases like hepatitis A, B, C, HIV or tuberculosis.? Patient is not on any anticoagulation [facility] Medical History HTN (hypertension) Nicotine dependence, cigarettes, uncomplicated Surgical History History of tonsillectomy Family History Mother No problems noted. Father Pancreatic cancer Social History Housing: House Alcohol intake: current Alcohol intake frequency: a few times a month Alcohol type: beer Patient Tobacco Use Status: Current everyday Tobacco user Cigarettes Per Day: 20 Years Smoked: (onset 20yo, 1ppd x 33yrs, 30+PYH) e-Cigarette/Vaping Use: Never Used service: Yes Current occupational status: employed and retired ([employer] ) Current occupation: [employer] Current occupational exposures/hazards: No Cognitive needs: No Hearing needs: No Vision needs: Yes Review of Systems Const Denies weight gain and Denies weight loss ENT Reports no additional complaints, Denies dysphagia and Denies odynophagia Card Reports no additional complaints Resp Reports no additional complaints GI Denies abdominal pain, Denies belching, Denies melena, Denies bloating, Denies change in bowel habits, Denies dysphagia, Denies excessive flatus, Denies dyspepsia, Denies heartburn, Denies diarrhea, Denies loose stools, Denies nausea, Denies odynophagia and Denies vomiting Reports no additional complaints Musc Reports no additional complaints Neuro Reports no additional complaints Psych Reports no additional complaints Endo Reports no additional complaints Physical Exam Const General: healthy appearing, no acute distress and well developed Nutritional Appearance: well nourished Orientation/consciousness: patient oriented x3 Resp Effort & Inspection: normal respiratory effort, able to speak in complete sentences, no tracheal deviation and symmetric chest movement Auscultation: clear to auscultation bilaterally Cardio Rate: regular rate GI Inspection: Yes normal to inspection and No distended Palpation (GI): Soft to palpation, not firm, nontender and No hepatosplenomegaly present Auscultation: normal bowel sounds General: Yes no CVA tenderness Back/Spine/Pelvis Back: no CVA tenderness Skin General skin exam: elasticity normal, turgor normal and dry skin Neuro General: patient oriented x3 Psych Appearance: grossly normal Mental Status: mental status grossly normal Assessment & Plan Assessment & Plan (1) Screening for colon cancer: Code(s): Z12.11 - Encounter for screening for malignant neoplasm of colon Category: Medical (2) Hemorrhoid: Code(s): K64.9 - Unspecified hemorrhoids Qualifiers: Hemorrhoid type: unspecified Qualified Code(s): K64.9 - Unspecified hemorrhoids Plan Patient denies any GI, cardiac or respiratory symptoms.? Denies any issues with anesthesia in the past.? Denies any history of sleep apnea.? No history infectious diseases in the past or present.? Not on any anticoagulation therapy.? No family or personal history of colon cancer or polyps.? Patient denies melena, hematochezia, unintentional weight loss or ribbon like stools.? However patient does reports to have blood on the tissue when wiping. Was told that he had hemorrhoids. Will send him script for Proctosol. Discussed at length the pre-procedure,? prep, diet & medications as well as what to expect prior, during and after the procedure.?? Stressed the importance of good bowel prep.? Recommended the use of Vaseline or Calmoseptine OTC & baby wipes with bowel movements to promote comfort.? ?Patient verbalizes understanding and agrees to plan of care.? He was given the opportunity to ask questions and all questions answered.? We will see him after the procedure.? Medications: New polyethylene glycol 3350 (Miralax) As directed by gastroenterology department at [facility] 238 grams PO ONCE 238 grams 0RF Z12.11 - Encounter for screening for malignant neoplasm of colon bisacodyl (Dulcolax (bisacodyl)) take 4 tabs at noon the day before your colonoscopy 20 mg (4 x 5 mg) PO ONCE 4 tabs 0RF constipation 1 day Z12.11 - Encounter for screening for malignant neoplasm of colon hydrocortisone 2.5% (Proctosol HC) 1 appl IA BID-QID PRN 30 grams 2RF hemorrhoids K64.9 - Unspecified hemorrhoids Coding Level of Care Code New Pt Level 3 (38244) Diagnoses Screening for colon cancer Z12.11 Hemorrhoids, unspecified hemorrhoid type K64.9 Hemorrhoid type: unspecified Time Spent (min) 40 Comment 30 minutes spent with patient and additional 10 minutes spent reviewing her records
== END 2024-12-07 08:23 | disposition home or self-care (01) ==
LOC: HO.HGI 07:34
PROVIDERS: PCP Nurse Practitioner Family; Visit Provider Nurse Practitioner Family
DX: Z01.818 Encounter for other preprocedural examination (principal); Z12.11 Encounter for screening for malignant neoplasm of colon; K64.9 Unspecified hemorrhoids
CPT/HCPCS: S0285

== ENCOUNTER 2024-12-07 07:33 | Outpatient (REF) | payer OTHER, SELFPAY ==
[2024-12-07 10:27] LABS: MANUAL DIFF FLAG NO
[2024-12-07 10:40] LABS: Hematocrit 43.8 % (42.0-52.0); Hemoglobin 14.7 g/dl (14.0-18.0); Imm Gran Abs Auto 0.01 X10*3/uL (0.00-0.03); Imm Gran Pct Auto 0.1 % (0.0-0.4); Lymphocytes Absolute Auto 2.9 X10*3/uL (1.2-4.9); Mean Corpuscular HGB Conc 33.6 g/dl (31.0-36.0); Mean Corpuscular Hemoglobin 32.0 pg (27.0-33.0); Mean Corpuscular Volume 95.4 fL (80.0-98.0); NRBC Abs Auto 0.000 X10*3/uL (0.0-0.012); NRBC Pct Auto 0.0 /100WBC (0.0-0.2); Platelet Count 354 X10*3/uL (160-400); Red Blood Count 4.59 X10*6/uL (4.60-5.80); White Blood Count 7.0 X10*3/uL (4.8-10.8)
[2024-12-07 11:04] LABS: Alanine Aminotransferase 21 U/L (0-40); Albumin Level 4.6 g/dL (3.5-5.0); Alkaline Phosphatase 55 U/L (39-117); Anion Gap 12 (12-20); Aspartate Amino Transferase 23 U/L (5-37); Blood Urea Nitrogen 10 mg/dL (9-16); Calcium 9.1 mg/dL (8.4-10.2); Carbon Dioxide 27 mmol/L (22-29); Chloride 105 mmol/L (96-108); Cholesterol 176 mg/dL (<200); Estimated Glomerular Filt Rate > 60; HDL Cholesterol 57 mg/dL (>40); Potassium 4.1 mmol/L (3.3-5.1); Sodium 140 mmol/L (135-145); Total Protein 6.7 g/dL (6.5-8.0); Triglycerides 56 mg/dL (<150)
[2024-12-07 11:23] LABS: Appearance Urine Clear; Glucose Urine UA Negative (Negative); PH 7.0 (5.0-9.0); Specific Gravity - Urine <= 1.005 (1.005-1.025)
== END 2024-12-07 07:34 | disposition home or self-care (01) ==
LOC: HO.HMGCLDS 07:33
PROVIDERS: PCP Nurse Practitioner Family; Referring Provider Nurse Practitioner Family; Visit Provider Nurse Practitioner Family
DX: Z12.11 Encounter for screening for malignant neoplasm of colon (principal); K64.9 Unspecified hemorrhoids; I10 Essential (primary) hypertension; R31.29 Other microscopic hematuria; Z12.5 Encounter for screening for malignant neoplasm of prostate
CPT/HCPCS: 36415; 80053; 80061; 81003; 84153; 84443; 85025; 88112

== ENCOUNTER 2025-02-21 09:43 | Outpatient (REF) | payer OTHER, SELFPAY ==
--- NOTE | ~2025-02-21 | CT_ITS ---
EXAMINATION: CT LUNG SCREENING HISTORY: F17.210 - Nicotine dependence, cigarettes, uncomplicated TECHNIQUE: Low dose axial images were obtained from the sternal notch to upper abdomen without IV contrast per standard departmental protocol. Sagittal and coronal reformatted images were also obtained and reviewed. One or more of the following techniques was used for dose reduction: Automated exposure control, adjustment of the mA and/or kV according to patient size, use of iterative reconstruction technique. DLP: 87 mGy-cm COMPARISON: Comparison is made with the prior examination dated 12/11/2023. FINDINGS: Lung nodules: There are scattered tiny nodules measuring up to 3 mm in size in the right middle lobe (series 4, image 98), in the right lower lobe (series 4, images 87 and 123) and in the left lower lobe (series 4, image 57). A 3 mm nodule along the right minor fissure is compatible with an intrapulmonary lymph node (series 4, image 88). No suspicious pulmonary nodules are identified. Emphysema: mild Coronary Calcification: mild Aortic Arch Calcification: mild Potentially Significant Incidentals : none Additional Chest Findings: There is no pleural or pericardial effusion. No mediastinal or axillary lymphadenopathy is identified. Visualized upper abdomen: The visualized portions of the liver, spleen, and adrenals have an unremarkable unenhanced appearance. CT/CT lung screening IMPRESSION: No suspicious pulmonary nodules are identified. LUNG-RADS ASSESSMENT: Lung-RADS 2: Benign MANAGEMENT: Continue annual screening with LDCT in 12 months Category S: N/A Electronically signed by: Patrice Messina MD 02/21/2025 10:25 AM EDT
== END 2025-02-21 09:44 | disposition home or self-care (01) ==
LOC: HO.CT 09:43
PROVIDERS: PCP Nurse Practitioner Family; Visit Provider Physician Assistant Medical
DX: Z12.2 Encounter for screening for malignant neoplasm of respiratory organs (principal); F17.210 Nicotine dependence, cigarettes, uncomplicated
CPT/HCPCS: 71271

== ENCOUNTER → 2025-02-21 09:44 | Outpatient (BNV) | payer OTHER, SELFPAY | PROVIDERS: PCP Nurse Practitioner Family; Visit Provider Radiology Diagnostic Radiology | DX: Z12.2 Encounter for screening for malignant neoplasm of respiratory organs (principal); Z87.891 Personal history of nicotine dependence | CPT/HCPCS: 71271 ==

== ENCOUNTER 2025-03-09 07:58 | Outpatient (AMB) | payer OTHER, SELFPAY ==
--- OUTSIDE RECORDS SUMMARY | 2025-03-09 08:02 | XMS_ITS | Encounter Summary ---
Author Organization [facility] Address [address] [place] [id number] Phone Care Team Providers Care Lifestyle Coordinator Name Role Phone William Medley ANIMAL B[employer] HUNTER Primary Care Provider [phone] Reason for Referral * MRI/CAT Scan - Closed Specialty Diagnoses / Procedures Referred By Contac t Referred To Contact Radiology Diagnoses Radiculopathy, cervical region Other cervical disc degeneration, mid-cervical region, unspecified level Procedures MRI Cervical Spine William Medley NP [address] [place] [address] Phone: tel: fax: [email or web address] Referral ID Status Reason Start Date Expiration Date Visits Re quested Visits Authorized [id number] Closed 10/23/2023 10/22/2024 1 1 Encounter Details Date Type Department Care Team (Latest Contact Info) Description 10/23/2023 Transcribe Orders Virtual Department [address] [place] [address] William Medley NP [address] [place] [address] [email or web address] Radiculopathy, cervical region (Primary Dx); Other cervical [...] EDT Impressions 11/24/2023 9:04 AM EDT 1. Cervical spondylosis, severe at C5-C6, with moderate to severe canal stenosis and compression/flattening of the cord. 2. Suggestion of possible hazy T2 hyperintense signal in the cord at C5-C6, raising concern for compressive myelopathy. 3. Foraminal stenosis at multiple levels, severe at C5-C6 and C6-C7. 4. Other findings, as above. A clinically significant result was initiated on 11/24/2023 9:04 AM, Message ID [id number]. Narrative 11/24/2023 9:04 AM EDT MRI CERVICAL [...] was initiated on 11/24/2023 9:04 AM,Message ID [id number]. William Medley NP IMG MR XSPECIALTY Final R esult documented in this encounter Visit Diagnoses Diagnosis Radiculopathy, cervical region- Primary Brachial neuritis or radiculitis nos Other cervical disc degeneration, mid-cervical region, unspecified level Radiculopathy, cervical region Brachial neuritis or radiculitis nos Other cervical disc degeneration, mid-cervical region, unspecified level documented in this encounter Care Teams Lifestyle Coordinator Relationship Specialty Start Date End Date William Medley NP [address] [place] [address] [email or web address] PCP - General Nurse Practitioner 11/04/23 documented as of this encounter Additional Source Comments The information contained in this document represents components of the legal health record. It is not the complete legal health record.[facility]
--- OUTSIDE RECORDS SUMMARY | 2025-03-09 08:02 | XMS_ITS | Clinical Summary ---
Author Organization [facility] Address [address] [place] [id number] Phone Care Team Providers Care Cement Or Concrete Finishing Supervisor Name Role Phone William Medley NP Primary Care Provider [phone] Social History Tobacco Use Types Packs/Day Years [...] SELECT SELECT SELECT SELECT SELECT Care Teams Cement Or Concrete Finishing Supervisor Relationship Specialty Start Date End Date William Medley NP [address] [place] [address] [email or web address] PCP - General Nurse Practitioner 11/04/23 Additional Source Comments The information contained in this document represents components of the legal health record. It is not the complete legal health record.[facility]
--- OUTSIDE RECORDS SUMMARY | 2025-03-09 08:02 | XMS_ITS | Encounter Summary ---
Author Organization [facility] Address [address] [address] Phone Care Team Providers Care Grocery Clerk Name Role Phone William Medley RECOVERY RN Primary Care Provider [phone] Encounter Details Date Type Department Care Team (Late st Contact Info) Description 10/23/2023 Procedure Pass [address] [place] [address] Social History Tobacco Use Types Packs/Day Years [...] on filedocumented in this encounter Care Teams Grocery Clerk Relationship Specialty Start Date End Date William Medley NP [address] [place] [address] PCP - General Nurse Practitioner 11/04/23 documented as of this encounter Additional Source Comments The information contained in this document represents components of the legal health record. It is not the complete legal health record.[facility]
[2025-03-09 08:23] VITALS: BP 126/82; PULSE 72; O2SAT 96; BMI 22.2
--- NOTE | 2025-03-09 08:23 | A.OFFPC_ITS ---
Vital Signs 03/09/25 08:23 Height 5 ft 11 in Weight 159 lb BMI 22.2 BP 126/82 Blood Pressure Location Lt brachial Position Sitting Pulse 72 Pulse Source Pulse Oximeter Pulse Oximetry (%) 96 Oxygen Delivery Method Room Air Intake Visit Reasons: 6m follow up reschedule from October Financial Operations Consultant Required: No Accompanied by: Self / Same As Patient Allergies No Known Allergies Allergy (Verified 03/09/25 08:52) Medication List - Last Reconciled 03/09/25 by MIGEL Givens- bisacodyl (Dulcolax (bisacodyl)) 20 mg (4 x 5 mg) PO ONCE 1 day hydrocortisone 2.5% (Proctosol HC) 1 appl LA BID-QID PRN lisinopril 2.5 mg PO DAILY polyethylene glycol 3350 (Miralax) 238 grams PO ONCE Tobacco use date assessed: 03/09/25 Dental Screening Dental Screen Date: 03/09/25 Did you have a dental visit in the last 12 months?: Yes Did you have a dental problem in the last 6 months where you did not have access to dental care?: No Was dental information given to patient?: Patient has dentist HPI 6m follow up reschedule from October HPI Details Chief Complaint The patient presents for follow-up of hypertension. History of Present Illness The patient is a 54-year-old male presenting for follow-up for hypertension. His blood pressure is reported to be stable, and he denies any associated symptoms such as chest pain, shortness of breath, blurred vision, or headaches. The patient has an extensive smoking history and is part of a low-dose CT scan screening program. Family hx of pancreatic ca (father). Reinforced relevance of this, especially with the pt's smoking Hx. Pt reports he will think about going to genetics for an eval. Social History - Substance Use: The patient has an exte nsive smoking history. Health Maintenance - The patient is enrolled in a low-dose CT scan program for lung cancer screening due to his extensive smoking history. - A baseline EKG was performed. Review of Systems - Neurological: Denies blurred vision an d headaches. - Cardiovascular: Denies chest pain. - Respiratory: Denies increased shortnes s of breath. Physical Exam General: Cooperative, healthy appearing, comfortable, no acute distress and well developed Orientation: Patient oriented x3 Limitations: No limitations Head: Normal to inspection Ears: Hearing grossly normal bilaterally Nose: Normal external nose present Face and sinus: Normal facial exam Eyes: Appearance normal, both eyes and all related structures Neck: Normal visual inspection and Yes full ROM Respiratory: Normal respiratory effort and able to speak in complete sentences. Clear to auscultation bilaterally, slightly diminished Cardiovascular: Regular rate and rhythm. Normal S1 and S2 GI: Normal to inspection. Soft to palpation and nontender Skin: No rashes or lesions noted Neuro: Patient oriented x3 Extremities: Normal to inspection, no edema Results - Tests and Diagnostics: A baseline EKG was performed. Plan 1. Hypertension The patient's blood pressure is stable, and he is asymptomatic. A baseline EKG was obtained during the visit. 2. Tobacco Use Disorder Due to the patient's extensive smoking history, he is enrolled in a low-dose CT scan program for lung cancer screening. Continued participation in the screening program is recommended. 3. family Hx of pancreatic cancer Discussion Notes I noted that the patient's blood pressure is stable for this hypertension follow-up. We obtained a baseline EKG today, which is appropriate given his extensive smoking history. I also confirmed his continued participation in the low-dose CT scan program for lung cancer screening. Patient Instructions - Your blood pressure is currently stabl e. - Continue to follow up as planned for y our blood pressure. - An EKG, which is a test of your heart' s electrical activity, was done today to have a baseline for future comparison. - Because of your smoking history, it is important that you continue with the low-dose CT scan screening program. - Please let us know if you develop any new chest pain, shortness of breath, blurry vision, or headaches. [facility] Medical History HTN (hypertension) Nicotine dependence, cigarettes, uncomplicated Surgical History History of tonsillectomy Family History Mother No problems noted. Father Pancreatic cancer Social History Housing: House Alcohol intake: current Alcohol intake frequency: a few times a month Alcohol type: beer Patient Tobacco Use Status: Current everyday Tobacco user Cigarettes Per Day: 20 Years Smoked: (onset 20yo, 1ppd x 33yrs, 30+PYH) e-Cigarette/Vaping Use: Never Used service: Yes Current occupational status: employed and retired ([employer] ) Current occupation: [employer] Current occupational exposures/hazards: No Cognitive needs: No Hearing needs: No Vision needs: Yes Questionnaire Thrive Questionnaire Date Thrive assessed: 05/11/24 I am a: Patient What is your living situation today?: I have a steady place to live Within the past 12 months, did the food you bought not last and you didn't have the money to get more?: Never true Within the past 12 months, did you worry whether your food would run out before you got money to buy more?: Never true Do you have trouble paying for medicines?: No Do you have trouble getting transportation to medical appointments?: No Do you have trouble paying your heating and electricity bill?: No Do you have trouble taking care of your child, family member or friend?: No Do you have trouble with day-to-day activities such as bathing, preparing meals, shopping, managing finances, etc.?: No Are you currently unemployed and looking for a job?: No Are you interested in more education?: No Please select the resources that you would like help with: Job search/training Currently or been in a relationship where the following occur: No concerns reported THRIVE Score: 0 SUMAYA-7 AMB Questionnaire SUMAYA-7 Date SUMAYA - 7 assessed: 05/17/24 Source: Developed by Drs. Patrice Baires, Suzy Calderón, Elio Garcia and colleagues, with an educational lit from [employer]. Physical exam (Primary Care) Vital Signs: Last Vital Signs Pulse 72 03/09/25 08:23 BP 126/82 03/09/25 08:23 Pulse Ox 96 03/09/25 08:23 Oxygen Delivery Method Room Air 03/09/25 08:23 BMI result Body Mass Index 22.2 Tobacco/Smoking Status: Tobacco use Status Tobacco use date assessed 03/09/25 03/09/25 08:27 Patient Tobacco Use Status Current everyday Tobacco 03/09/25 08:27 e-Cigarette/Vaping Use Never Used 03/09/25 08:27 Thrive Assessment: Date of Thrive Assessment Date Thrive assessed 05/11/24 03/09/25 08:27 Currently or been in a relationship where the following occur: No concerns reported Office Procedures Flu Questionnaire Does the patient have a severe egg allergy?: No Does the patient have severe life threatening allergies?: No Does the patient have a fever or illness today?: No Has the patient ever had Guillain-[place] Syndrome?: No Has the patient ever had any past reaction to a flu shot?: No Immunizations Fluarix [id number] (PF) 45 mcg (15 mcg x 3)/0.5 mL IM syringe Performing Provider: KEREN Givens Performing Location: [facility] [place] [facility] Administered by: Keiko Ceja MA on 03/09/25 09:03 Dose Route Admin Location Dispensed Lot Number Expiration Date NDC Fish Cutting Machine Operator 0.5 mL IM Left Deltoid 0.5 mL [id number] 10/24/25 [id number] [employer] VIS Given Date VIS Provided VIS Publication Date 03/09/25 Single Vaccine 24 Eligibility Eligibility Date Funding Source Not [facility] Eligible 03/09/25 Private Coding Level of Care Code Est Pt Level 3 (69710) Diagnoses HTN (hypertension) I10 Family history of pancreatic cancer Z80.0 Assessment & Plan Assessment & Plan (1) HTN (hypertension): Code(s): I10 - Essential (primary) hypertension Category: Medical (2) Family history of pancreatic cancer: Code(s): Z80.0 - Family history of malignant neoplasm of digestive organs Category: Medical Plan . Orders: Orders Comprehensive [place]. Panel Fast Today I10 - Essential (primary) hypertension TSH reflex Free T4 Today I10 - Essential (primary) hypertension UA CC w/rflx Micro + Cult Today I10 - Essential (primary) hypertension Lipid Panel Today I10 - Essential (primary) hypertension AMB EKG-In Office Today I10 - Essential (primary) hypertension Complete Blood Count Auto Diff Today I10 - Essential (primary) hypertension Influenza [id number] Immunization Today Z23 - Encounter for immunization
== END 2025-03-09 09:09 | disposition home or self-care (01) ==
LOC: HO.HMCC 07:59
PROVIDERS: PCP Nurse Practitioner Family; Visit Provider Nurse Practitioner Family
DX: I10 Essential (primary) hypertension (principal); Z80.0 Family history of malignant neoplasm of digestive organs; Z23 Encounter for immunization

== ENCOUNTER → 2025-03-09 07:58 | Outpatient (BNVA) | payer OTHER, SELFPAY | PROVIDERS: PCP Nurse Practitioner Family; Visit Provider Nurse Practitioner Family | DX: I10 Essential (primary) hypertension (principal); F17.210 Nicotine dependence, cigarettes, uncomplicated; Z80.0 Family history of malignant neoplasm of digestive organs; Z23 Encounter for immunization | CPT/HCPCS: 90471; 90656; 99212 ==

== ENCOUNTER 2025-04-04 10:13 | Outpatient (AMB) | payer OTHER, SELFPAY ==
--- NOTE | 2025-04-04 10:16 | MHC.OFFVIS ---
Intake Visit Reasons: 6m/PSA/UA(SET) Intake Note: Patient is present for 6M/PSA/UA PSA:0.34 Urology Medication:NONE Antibiotic Allergy:NONE Blood Thinner:NONE Power Shear Operator Required: No Allergies No Known Allergies Allergy (Verified 04/04/25 10:18) HPI Comments Details: Miko Weeks is a very pleasant 54-year-old male patient of Dr. Meraz. He presents to the office today for follow-up of his microscopic hematuria in the setting of nicotine dependence. In discussion with the patient today he reports to be doing and feeling well. When asked he continues to smoke cigarettes. In office urinalysis results reviewed with the patient today trace microscopic hematuria noted. Previous workup has included CT urogram 09/17 noting the kidneys are normal in size, shape, and attenuation. Multiple left-sided benign peripelvic and cortical Bosniak class 1 renal cysts are noted which require no additional follow-up per radiology report. No solid renal masses are seen. No hydronephrosis, hydroureter, or calculi seen. The anterior lateral position of the bladder extended mildly into the small direct inguinal hernias bilaterally, right greater than left. We discussed at length potential causes of microscopic hematuria as well as further workup to include cystoscopy. He otherwise denies any bothersome urinary issues or concerns. He denies urinary urgency, urinary frequency, incontinence, nocturia, hematuria, dysuria, foul smelling urine, changes to urinary stream, flank pain, fever, and or chills. He is happy with his current voiding parameters. Discussed at length potential causes for microscopic hematuria may include but are not limited to kidney stones, cancer in the urinary tract, BPH, kidney stone disease or inflammatory conditions of the urinary tract. I have discussed workup to include cystoscopy evaluation. Will continue with surveillance monitoring at this time per patient request. He otherwise offers no other issues or concerns at this time. PSAs are as follows Urine Cytology: 09/17, 10/18, 04/19, 12/19 Negative for high-grade urothelial carcinoma. PSA 01/18 0.2, 12/19 0.3 PFSH Medical History HTN (hypertension) Nicotine dependence, cigarettes, uncomplicated Surgical History History of tonsillectomy Family History Mother No problems noted. Father Pancreatic cancer Social History Housing: House Alcohol intake: current Alcohol intake frequency: a few times a month Alcohol type: beer Patient Tobacco Use Status: Current everyday Tobacco user Cigarettes Per Day: 20 Years Smoked: (onset 20yo, 1ppd x 33yrs, 30+PYH) e-Cigarette/Vaping Use: Never Used service: Yes Current occupational status: employed and retired ([employer] ) Current occupation: [employer] Current occupational exposures/hazards: No Cognitive needs: No Hearing needs: No Vision needs: Yes Review of Systems Const All systems reviewed & are unremarkable except as noted in HPI and below Physical Exam Const General: cooperative, healthy appearing, comfortable, no acute distress, well developed, alert and awake Orientation/consciousness: patient oriented x3 Limitations: no limitations HEENT Head: Yes normal to inspection, Yes normocephalic and Yes atraumatic Ears: hearing grossly normal bilaterally Eyes General: appearance normal, both eyes and all related structures Neck Neck: Yes normal visual inspection and Yes trachea midline Chest Chest palpation & inspection: normal inspection of the chest Resp Effort & Inspection: normal respiratory effort and able to speak in complete sentences Cardio Rate: regular rate GI Inspection: Yes normal to inspection General: Yes no CVA tenderness Back/Spine/Pelvis Back: no CVA tenderness Skin General skin exam: no rashes or lesions noted Neuro General: patient oriented x3 Extrem General: Yes normal to inspection Psych Appearance: grossly normal and well kempt Mental Status: mental status grossly normal Speech and movement: Normal speech and movement present and Clear speech present Affect: normal affect Attitude: cooperative Thought process: Normal thought process present Thought content: Normal thought content present Insight: Fair insight present (Psych) Judgement: Fair judgement present (Psych) Results AMB Urinalysis, Automated UA Leukoctes 0 Bettie/uL Last Edit by TAMARA Funk on 04/04/25 10:30 UA Nitrite Negative Last Edit by TAMARA Funk on 04/04/25 10:30 UA Urobilinogen 0.2 mg/dL Last Edit by TAMARA Funk on 04/04/25 10:30 UA Protein 0 mg/dL Last Edit by TAMARA Funk on 04/04/25 10:30 UA pH 6.0 Last Edit by TAMARA Funk on 04/04/25 10:30 UA Blood 10 Porfirio/uL Last Edit by TAMARA Funk on 04/04/25 10:30 UA Specific [place] 1.010 Last Edit by TAMARA Funk on 04/04/25 10:30 UA Ketone Negative Last Edit by TAMARA Funk on 04/04/25 10:30 UA Bilirubin 0 mg/dL Last Edit by TAMARA Funk on 04/04/25 10:30 UA Glucose 0 mg/dL Last Edit by TAMARA Funk on 04/04/25 10:30 Assessment & Plan Assessment & Plan (1) Nicotine dependence, cigarettes, uncomplicated: Comment: (current smoker, onset 20yo, 1ppd x 33yrs, 30+PYH) Code(s): F17.210 - Nicotine dependence, cigarettes, uncomplicated Category: Medical (2) Microhematuria: Code(s): R31.29 - Other microscopic hematuria Category: Medical Plan In office urinalysis results reviewed with the patient today; as noted above; will send for urine cytology. We discussed potential causes of microscopic hematuria in the setting of nicotine dependence; we did discuss further workup to include in office cystoscopy however patient declines at this time. Recent PSA results reviewed with the patient today; as noted above. Previous urine cytology results were reviewed with the patient today; as noted above We discussed the importance of limiting/quitting nicotine dependence for overall health and well-being. He currently denies any bothersome urinary issues or concerns. He reports be happy with current voiding. Will continue with surveillance monitoring. Follow-up in 1 year with PSA, PVR, and urinalysis; or sooner with any issues, concerns, and or questions. Orders: Orders AMB Urinalysis Automated Today Z13.9 - Encounter for screening, unspecified Urine Cytology Today R31.29 - Other microscopic hematuria Prostate Specific Antigen 1 Year Z12.5 - Encounter for screening for malignant neoplasm of prostate Patient Instructions: The patient had an opportunity to ask questions regarding the treatment plan. All questions were answered. Physical exam, labs, and imaging were discussed and reviewed in detail. As well as risks, benefits, and discussion of treatment choices. No major barriers to understanding were identified. The patient expressed understanding and agreement with the above treatment plan. The patient was made aware they should contact our office by phone for worsening of their current condition, the appearance of new symptoms, or with any questions or concerns. Compliance is encouraged with any medications and follow up testing that is ordered. It is a privilege to be allowed the opportunity to participate in? your urological care.? Again, if you have any questions or concerns If you have any questions or concerns please do not hesitate to contact me. The office is [phone]. This note is constructed using voice recognition software. While every effort has been made to ensure accuracy rn supplemental errors may have been included. Yours sincerely, KEREN Faith Coding Level of Care Code Est Pt Level 3 (87540) Diagnoses Nicotine dependence, cigarettes, uncomplicated F17.210 Microhematuria R31.29
== END 2025-04-04 10:41 | disposition home or self-care (01) ==
LOC: HO.HUSH 10:14
PROVIDERS: PCP Nurse Practitioner Family; Visit Provider Nurse Practitioner Family
DX: F17.210 Nicotine dependence, cigarettes, uncomplicated (principal); R31.29 Other microscopic hematuria; Z13.9 Encounter for screening, unspecified
CPT/HCPCS: 99213

== ENCOUNTER 2025-04-04 10:13 | Outpatient (REF) | payer OTHER, SELFPAY | END 2025-04-04 10:14 | disposition home or self-care (01) | LOC: HO.LAB 10:13 | PROVIDERS: PCP Nurse Practitioner Family; Visit Provider Nurse Practitioner Family | DX: R31.29 Other microscopic hematuria (principal); F17.210 Nicotine dependence, cigarettes, uncomplicated; Z12.5 Encounter for screening for malignant neoplasm of prostate; Z13.89 Encounter for screening for other disorder | CPT/HCPCS: 81003; 88112; 99212 ==